=== PATIENT | male | born 1975 | race Caucasian/White ===

== ENCOUNTER 2016-12-12 01:05 | Emergency (ER) | payer MEDICARE, MEDICAID ==
[~2016-12-12] VITALS: Ht 160 cm; Wt 58.5 kg
[~2016-12-12 01:05] MED LIST: AMOX1TAB67 PO; CINA60TA PO; CLON0.2T5 PO; FOLI-49 PO; LABE200T25 PO; LORA1TAB PO; LOSA100T7 PO; NEPH PO; NIFE90TA PO; PANT40TA3 PO; PARO20TA58 PO; SEVE800T10 PO; ZOLP5TAB6 PO
[2016-12-12 01:19] VITALS: Ht 160 cm; Wt 58.5 kg
--- NOTE | 2016-12-12 02:52 | ERA ---
ER Documentation Chief Complaint Date/Time DATE: 12/12/16 TIME: 02:52 Chief Complaint epigastric burning pain radiating to back HPI The patient is a 40-year-old male, presenting with epigastric abdominal pain for the last couple of days, worse today, 03/18, no relieving or aggravating factors. He has similar symptoms previously, denies fever, chills, neck pain, chest pain, dyspnea, vomiting, dysuria, diarrhea. Past medical history: Chronic kidney disease, hypertension Past surgical history: History of failed kidney transplant, AV fistula, right chest hemodialysis catheter ROS All systems reviewed and are negative except as per history of present illness. Medications Home Meds Active Scripts Hydrocodone/Acetaminophen ([place] 10-325 Tablet) 1 Each Tablet, 1 TAB PO Q6H Y for PAIN, #7 TAB Prov:ELISE FAM MD 12/12/16 Pantoprazole* (Protonix*) 40 Mg Tablet.dr, 40 MG PO DAILY, #14 TAB Prov:ELISE FAM MD 12/12/16 Reported Medications Lorazepam* (Lorazepam*) 1 Mg Tablet, 1 MG PO BID Y for ANXIETY, TAB 08/08/15 Zolpidem Tartrate* (Zolpidem Tartrate*) 5 Mg Tablet, 5 MG PO HS Y, TAB 08/08/15 Cinacalcet* (Sensipar*) 60 Mg Tablet, 60 MG PO DAILY, TAB 08/08/15 Clonidine Hcl* (Clonidine Hcl*) 0.2 Mg Tablet, 0.2 MG PO Q6, TAB 08/08/15 Paroxetine Hcl* (Paxil*) 20 Mg Tablet, 20 MG PO DAILY, TAB 08/08/15 Nifedipine* (Procardia XL*) 90 Mg/Bottle Tab.osm.24, 90 MG PO Q12, TAB.SA 08/08/15 Multivit/Ca Carb/B Cmplx/Fa* (Sussy-Gen*) 1 Tab Tab, 1 TAB PO DAILY, TAB 05/01/15 Losartan Potassium* (Losartan Potassium*) 100 Mg Tablet, 100 MG PO DAILY, TAB 05/01/15 Labetalol Hcl* (Labetalol Hcl*) 200 Mg Tablet, 200 MG PO Q8, TAB 05/01/15 Pantoprazole* (Protonix*) 40 Mg Tablet.dr, 40 MG PO DAILY, TAB 05/01/15 Folic Acid* (Folic Acid*) 1 Mg Tablet, 1 MG PO DAILY, TAB 05/01/15 Amoxicillin-Clavulanate K* (Augmentin*) 500 Mg Tab, 500 MG PO DAILY, TAB 05/01/15 Sevelamer Hcl* (Renagel*) 800 Mg Tablet, 800 MG PO WITH MEALS, TAB 06/23/14 Allergies Allergies: Coded Allergies: metronidazole (Unverified Adverse Reaction, Severe, DELIRIUM, 05/02/15) PMhx/Soc History of Surgery: Yes (AV FISTULA [id number], KIDNEY TRANSPLANT 1990) Anesthesia Reaction: No Hx Neurological Disorder: No Hx Respiratory Disorders: No Hx Cardiac Disorders: Yes (HTN) Hx Psychiatric Problems: No Hx Miscellaneous Medical Probl: Yes Hx Alcohol Use: No Hx Substance Use: No Hx Tobacco Use: No Physical Exam Vitals Physical Exam Const: No acute distress. Head: Atraumatic. Eyes: Normal Conjunctiva. ENT: Normal External Ears, Nose and Mouth. Neck: Full range of motion. No meningismus. Resp: Clear to auscultation bilaterally. Cardio: Regular rate and rhythm, no murmurs. Abd: Soft, non distended, normal bowel sounds, moderate epigastric abdominal tenderness, no right lower, right upper quadrant, CVA, rigidity, rebound tenderness Skin: No petechiae or rashes. Back: No midline or flank tenderness. Ext: No cyanosis, or edema. Neur: Awake and alert. No focal deficit Psych: Normal Mood and Affect. Result Diagram: 12/12/16 0325 12/12/16 0325 Results 24 hrs Laboratory Tests Test 12/12/16 03:25 Alanine Aminotransferase (ALT/SGPT) 419IU/L Albumin 4.7g/dl Albumin/Globulin Ratio 1.23 Alkaline Phosphatase 346IU/L Anion Gap 25 Aspartate Amino Transf (AST/SGOT) 394IU/L Basophils # 0.010^3/ul Basophils % 0.5% Blood Morphology Comment Blood Urea Nitrogen 28mg/dl Calcium Level 9.7mg/dl Carbon Dioxide Level 27mmol/L Chloride Level 93mmol/L Creatinine 7.94mg/dl Direct Bilirubin 0.80mg/dl Eosinophils # 0.110^3/ul Eosinophils % 1.7% Globulin 3.80g/dl Glucose Level 90mg/dl Hematocrit 36.1% Hemoglobin 11.9g/dl Indirect Bilirubin 0.2mg/dl Lipase 133U/L Lymphocytes # 1.010^3/ul Lymphocytes % 18.0% Mean Corpuscular Hemoglobin 29.5pg Mean Corpuscular Hemoglobin Concent 32.9g/dl Mean Corpuscular Volume 89.6fl Mean Platelet Volume 9.6fl Monocytes # 0.510^3/ul Monocytes % 8.1% Neutrophils # 4.010^3/ul Neutrophils % 71.7% Nucleated Red Blood Cells # 0.010^3/ul Nucleated Red Blood Cells % 0.0/100WBC Platelet Count 98877^3/UL Potassium Level 4.3mmol/L Red Blood Count 4.0310^6/ul Red Cell Distribution Width 16.0% Sodium Level 141mmol/L Total Bilirubin 1.0mg/dl Total Protein 8.5g/dl White Blood Count 5.610^3/ul Current Medications Medications (Trade) Dose Ordered Sig/Kayden Route PRN Reason Start Time Stop Time Status Last Admin Dose Admin Morphine Sulfate (morphine) 4 mg ONCE STAT IV 12/12/16 02:57 12/12/16 02:58 DC 12/12/16 03:28 Ondansetron HCl (Zofran Inj) 4 mg ONCE STAT IV 12/12/16 02:57 12/12/16 02:58 DC 12/12/16 03:28 Morphine Sulfate (morphine) 2 mg ONCE ONCE IV 12/12/16 05:30 12/12/16 05:31 DC 12/12/16 05:30 Procedures/[place] [id number] Radiology Main Line: [phone] DIAGNOSTIC IMAGING REPORT Patient: SARAH NAZARIO : 1975 Age: 40 Sex: M MR #: [id number] DOS: 12/12/16 0257 Ordering MD: ELISE FAM MD Location: E/R Room/Bed: PROCEDURE: CT Abdomen and pelvis without contrast. CLINICAL INDICATION: Abdominal pain. TECHNIQUE: CT scan of the abdomen and pelvis was performed on a multi- detector high-resolution CT scanner. Contiguous axial images were obtained from the lung bases to the ischial tuberosities without intravenous contrast. Coronal and sagittal reformatted images were also obtained. Images were reviewed on the PACS workstation. One or more of the following dose reduction techniques were used: - Automated exposure control. - Adjustment of the mA and/or kV according to patient size. - Use of iterative reconstruction technique. Exam CTD/vol = 6.89 mGy. Total exam DLP = 394.23 mGy-cm. COMPARISON: None. FINDINGS: Evaluation of the lung bases demonstrates mild bibasilar atelectasis. Abdomen: The liver is normal in size with no focal mass identified. The patient is status post cholecystectomy with mild to moderate dilatation of the biliary tree. The common bile duct is dilated to 2.1 cm. The spleen, pancreas and bilateral adrenal glands are within normal limits. Bilateral kidneys are atrophic with no contour deforming mass identified. There is a left lower abdominal renal transplant which is normal in size and contains multiple cortical cysts and calcifications. There is no radiopaque ureteral calculus identified. There is no hydronephrosis or hydroureter. There is no retroperitoneal adenopathy. The abdominal aorta is of normal caliber. There is no bowel obstruction or free air. A normal appendix is identified. There is colonic diverticulosis without evidence of diverticulitis. There is no ascites. Pelvis: The bladder is unremarkable. The prostate and seminal vesicles are within normal limits. There is no significant pelvic adenopathy or free fluid. Evaluation of the osseous structures demonstrates no suspicious lytic or blastic lesion. IMPRESSION: Left lower abdominal renal transplant with multiple cortical cysts and calcifications. There is no obstructive uropathy. Bilateral atrophic [place] kidneys. Status post cholecystectomy with dilatation of the biliary tree. Colonic diverticulosis without evidence of diverticulitis. .Crow August MD, MD Date Time Electronically viewed and signed by .Crow August MD, on 12/12/2016 04:02 .T/ CC: ELISE FAM MD MEDICAL MAKING DECISION: The patient is a 40-year-old male, presenting with epigastric abdominal pain of unclear etiology. He was treated with morphine 4 mg IV, 2 mg IV for pain and Zofran formula IV for nausea with good response. The differential diagnoses considered include but are not limited to cholelithiasis, cholecystitis, cystitis, pancreatitis, hepatitis, gastritis, peptic ulcer disease, gastric ulcer, appendicitis, diverticulitis, cholangitis, choledocholithiasis, partial small bowel obstruction. Departure Diagnosis: Primary Impression: Epigastric pain Condition: Good Comments He was discharged with Protonix I discussed the findings with the patient. I advised the patient to follow-up with the primary physician in about 1-2 days, sooner if needed and return if any concern. ELISE FAM MD Dec 12, 2016 02:52
[2016-12-12] MEDS ORDERED: morphine 4 MG/ML VIAL IV STA (02:57)
[2016-12-12] MEDS ORDERED: ONDANSETRON 4 MG INJ IV STA (02:57)
--- NOTE | 2016-12-12 04:03 | RADRPT ---
PROCEDURE: CT Abdomen and pelvis without contrast. CLINICAL INDICATION: Abdominal pain. TECHNIQUE: CT scan of the abdomen and pelvis was performed on a multi-detector high-resolution CT scanner. Contiguous axial images were obtained from the lung bases to the ischial tuberosities wit hout intravenous contrast. Coronal and sagittal reformatted images were also obtained. Images were reviewed on the PACS workstation. One or more of the following dose reduction techniques were used: - Automated exposure control. - Adjustment of the mA and/or kV according to patient size. - Use of iterative reconstruction technique. Exam CTD/vol = 6.89 mGy. Total exam DLP = 394.23 mGy-cm. COMPARISON: None. FINDINGS: Evaluation of the lung bases demonstrates mild bibasilar atelectasis. Abdomen: The liver is normal in size with no focal mass identified. The patient is status post cho lecystectomy with mild to moderate dilatation of the biliary tree. The common bile duct is dilated to 2.1 cm. The spleen, pancreas and bilateral adrenal glands are within normal limits. Bilateral k idneys are atrophic with no contour deforming mass identified. There is a left lower abdominal liz l transplant which is normal in size and contains multiple cortical cysts and calcifications. There is no radiopaque ureteral calculus identified. There is no hydronephrosis or hydroureter. There i s no retroperitoneal adenopathy. The abdominal aorta is of normal caliber. There is no bowel obstruction or free air. A normal appendix is identified. There is colonic diver ticulosis without evidence of diverticulitis. There is no ascites. Pelvis: The bladder is unremarkable. The prostate and seminal vesicles are within normal limits. There is no significant pelvic adenopathy or free fluid. Evaluation of the osseous structures demonstrates no suspicious lytic or blastic lesion. IMPRESSION: Left lower abdominal renal transplant with multiple cortical cysts and calcifications. There is no o bstructive uropathy. Bilateral atrophic [place] kidneys. Status post cholecystectomy with dilatation of the biliary tree. Colonic diverticulosis without evidence of diverticulitis. .Crow August MD, MD Date Time Electronically viewed and signed by .Crow August MD, MD on 12/12/2016 04:02 .T/
[2016-12-12 04:07] LABS: ALBUMIN 4.7 g/dl (3.3-4.9)
[2016-12-12 04:08] LABS: POTASSIUM 4.3 mmol/L (3.5-5.1)
[2016-12-12 04:10] LABS: ALBUMIN/GLOBULIN RATIO 1.23; BILIRUBIN,DIRECT 0.8 mg/dl (0.00-0.20); BILIRUBIN,INDIRECT 0.2 mg/dl (0-1.1); CREATININE 7.94 mg/dl (0.61-1.24); TOTAL PROTEIN 8.5 g/dl (6.1-8.1)
[2016-12-12 04:11] LABS: CALCIUM 9.7 mg/dl (8.4-10.2)
[2016-12-12 04:30] LABS: BASOPHILS % 0.5 % (0.0-2.0); EOSINOPHILS # 0.1 10^3/ul (0.0-0.5); EOSINOPHILS % 1.7 % (0.0-7.0); HEMATOCRIT 36.1 % (42.0-52.0); HEMOGLOBIN 11.9 g/dl (14.0-18.0); MEAN CORPUSCULAR HEMOGLOBIN 29.5 pg (29.0-33.0); MEAN CORPUSCULAR HGB CONC 32.9 g/dl (32.0-37.0); MEAN CORPUSCULAR VOLUME 89.6 fl (82.0-101.0); MEAN PLATELET VOLUME 9.6 fl (7.4-10.4); MONOCYTE # 0.5 10^3/ul (0.3-0.9); MONOCYTES % 8.1 % (0.0-11.0); NEUTROPHILS % 71.7 % (39.0-77.0); PLATELET COUNT 224 10^3/UL (140-440); RED BLOOD COUNT 4.03 10^6/ul (4.70-6.10); UNCORRECTED WBC 5.6 10^3/ul (4.8-10.8); WHITE BLOOD COUNT 5.6 10^3/ul (4.8-10.8)
[2016-12-12 04:35] LABS: CONDITION 1; LH ANALYZER COMMENTS 1
[2016-12-12] MEDS ORDERED: PANT40TA3 PO (05:22)
[2016-12-12] MEDS ORDERED: HYDR-902 PO (05:22)
[2016-12-12] MEDS ORDERED: morphine 2 MG INJ IV ONE (05:30)
[2016-12-12 06:24] VITALS: BP 146/104; PULSE 84; RESP 18
== END 2016-12-12 06:33 | disposition home or self-care (01) ==
LOC: E/R 01:05
DX: R10.13 Epigastric pain (principal); I12.0 Hypertensive chronic kidney disease with stage 5 chronic kidney disease or end stage renal disease; N18.6 End stage renal disease; R11.0 Nausea; Z94.0 Kidney transplant status; Z99.2 Dependence on renal dialysis
CPT/HCPCS: 36415; 74176; 80053; 83690; 85025; 96374; 96375; 96376; 99285; J2270; J2405

== ENCOUNTER 2017-01-19 16:54 | Inpatient (IN) | payer MEDICARE, MEDICAID ==
[~2017-01-19] VITALS: Ht 160 cm; Wt 61.5 kg
[~2017-01-19 16:54] MED LIST changes: +HYDR-902 PO
[2017-01-19] MEDS ORDERED: SODIUM CHLORIDE 0.9% 1L BAG IV* STA (17:32)
[2017-01-19] MEDS ORDERED: ACETAMINOPHEN 325 MG TAB PO STA (17:32)
[2017-01-19] MEDS ORDERED: CEFEPIME 2GM/50 ML (PMX) 50 ML IVPB STA (17:32)
--- NOTE | 2017-01-19 17:41 | ERA ---
ER Documentation Chief Complaint Date/Time DATE: 01/19/17 TIME: 17:39 Chief Complaint COUGH CONGESTION WITH SOB AND FEVER FOR THE PAST FEW DAYS.GEN WEAKNESS HPI 41-year-old male history of end-stage renal disease on dialysis who presents with fever and hyperkalemia. He states his last dialysis was on Thursday. He describes approximately 1 week of cough and congestion with fever, chills, myalgia. Mild associated shortness of breath. Patient was told recently that his potassium was high. He denies any headache, rash, abdominal pain. No nausea vomiting or diarrhea. ROS All systems reviewed and are negative except as per history of present illness. Medications Home Meds Reported Medications Cinacalcet* (Sensipar*) 30 Mg Tab, 30 MG PO DAILY, TAB 01/19/17 Esomeprazole Mag Trihydrate (Nexium) 40 Mg Capsule.dr, 40 MG PO DAILY, #30 CAP 01/19/17 Lorazepam* (Lorazepam*) 1 Mg Tablet, 1 MG PO BID Y for ANXIETY, TAB 08/08/15 Zolpidem Tartrate* (Zolpidem Tartrate*) 5 Mg Tablet, 5 MG PO HS Y, TAB 08/08/15 Nifedipine* (Procardia XL*) 90 Mg/Bottle Tab.osm.24, 90 MG PO Q12, TAB.SA 08/08/15 Losartan Potassium* (Losartan Potassium*) 100 Mg Tablet, 100 MG PO DAILY, TAB 05/01/15 Labetalol Hcl* (Labetalol Hcl*) 200 Mg Tablet, 200 MG PO Q8, TAB 05/01/15 Folic Acid* (Folic Acid*) 1 Mg Tablet, 1 MG PO DAILY, TAB 05/01/15 Sevelamer Hcl* (Renagel*) 800 Mg Tablet, 800 MG PO WITH MEALS, TAB 06/23/14 Discontinued Reported Medications Cinacalcet* (Sensipar*) 60 Mg Tablet, 60 MG PO DAILY, TAB 08/08/15 Clonidine Hcl* (Clonidine Hcl*) 0.2 Mg Tablet, 0.2 MG PO Q6, TAB 08/08/15 Paroxetine Hcl* (Paxil*) 20 Mg Tablet, 20 MG PO DAILY, TAB 08/08/15 Multivit/Ca Carb/B Cmplx/Fa* (Sussy-Gen*) 1 Tab Tab, 1 TAB PO DAILY, TAB 05/01/15 Pantoprazole* (Protonix*) 40 Mg Tablet.dr, 40 MG PO DAILY, TAB 05/01/15 Amoxicillin-Clavulanate K* (Augmentin*) 500 Mg Tab, 500 MG PO DAILY, TAB 05/01/15 Discontinued Scripts Hydrocodone/Acetaminophen ([place] 10-325 Tablet) 1 Each Tablet, 1 TAB PO Q6H Y for PAIN, #7 TAB Prov:ELISE FAM MD 12/12/16 Pantoprazole* (Protonix*) 40 Mg Tablet., 40 MG PO DAILY, #14 TAB Prov:ELISE FAM MD 12/12/16 Allergies Allergies: Coded Allergies: metronidazole (Unverified Adverse Reaction, Severe, DELIRIUM, 01/19/17) PMhx/Soc History of Surgery: Yes (AV FISTULA [id number], KIDNEY TRANSPLANT 1990, permacath on right chest) Anesthesia Reaction: No Hx Neurological Disorder: No Hx Respiratory Disorders: No Hx Cardiac Disorders: Yes (HTN) Hx Psychiatric Problems: No Hx Miscellaneous Medical Probl: Yes (gallstones, ESRD (dialysis pt)) Hx Alcohol Use: No Hx Substance Use: No Hx Tobacco Use: No FmHx Family History: No diabetes Physical Exam Vitals Vital Signs Date Time Temp Pulse Resp B/P Pulse Ox O2 Delivery O2 Flow Rate FiO2 01/19/17 18:36 103.1 110 25 139/83 98 01/19/17 18:09 102.7 111 21 152/93 99 01/19/17 17:15 103.3 113 21 131/74 98 Physical Exam General: Well developed, well nourished, no acute distress Head: Normocephalic, atraumatic. Eyes: Pupils equally reactive, EOM intact ENT: Moist mucous membranes Neck: Supple, no lymphadenopathy Respiratory: Scant rhonchi bilaterally but good aeration, no distress Cardiovascular: Tachycardia, no murmurs, rubs, or gallops Abdominal: Soft, non-tender, non-distended, no peritoneal signs : Deferred MSK: No edema, no unilateral swelling, 5/5 strength Neurologic: Alert and oriented, moving all extremities, normal speech, no focal weakness, no cerebellar signs Skin: No rash, right tunneled Vas-Cath is clean dry and intact Psych: Normal mood Result Diagram: 01/19/17 1745 01/19/17 1745 Results 24 hrs Laboratory Tests Test 01/19/17 17:45 Activated Partial Thromboplast Time 39.6Sec Alanine Aminotransferase (ALT/SGPT) 30IU/L Albumin 4.2g/dl Albumin/Globulin Ratio 1.35 Alkaline Phosphatase 130IU/L Anion Gap 27 Aspartate Amino Transf (AST/SGOT) 26IU/L Blood Urea Nitrogen 43mg/dl Calcium Level 8.4mg/dl Carbon Dioxide Level 23mmol/L Chloride Level 94mmol/L Creatinine 13.43mg/dl Direct Bilirubin 0.00mg/dl Globulin 3.10g/dl Glucose Level 167mg/dl Hematocrit 31.3% Hemoglobin 10.1g/dl Hypochromasia 1+ INR International Normalized Ratio 1.08 Indirect Bilirubin 0.0mg/dl Lactic Acid Level 2.5mmol/L Lymphocytes # 0.210^3/ul Lymphocytes % 2.0% Mean Corpuscular Hemoglobin 29.2pg Mean Corpuscular Hemoglobin Concent 32.3g/dl Mean Corpuscular Volume 90.5fl Mean Platelet Volume 12.3fl Monocytes # 0.210^3/ul Monocytes % 2.0% Neutrophils # 8.610^3/ul Neutrophils % 96.0% Platelet Count 64879^3/UL Platelet Estimate PLT APPEAR ADEQUATE Potassium Level 4.9mmol/L Prothrombin Time 14.0Sec Prothrombin Time Ratio 1.1 Red Blood Count 3.4610^6/ul Red Cell Distribution Width 13.7% Sodium Level 139mmol/L Total Bilirubin 0.0mg/dl Total Protein 7.3g/dl Troponin I < 0.012ng/ml White Blood Count 9.010^3/ul Current Medications Medications (Trade) Dose Ordered Sig/Kayden Route PRN Reason Start Time Stop Time Status Last Admin Dose Admin Sodium Chloride (NS) 1,800 ml BOLUS OVER 2 HOURS STAT IV* 01/19/17 17:32 01/19/17 17:34 DC 01/19/17 17:48 Acetaminophen 650 mg 650 mg ONCE STAT PO 01/19/17 17:32 01/19/17 17:34 DC 01/19/17 17:49 Cefepime HCl 50 ml @ 100 mls/hr ONCE STAT IVPB 01/19/17 17:32 01/19/17 18:01 DC 01/19/17 17:48 Vancomycin HCl (Vancocin) 250 ml @ 125 mls/hr ONCE ONCE IVPB 01/19/17 18:00 01/19/17 19:59 01/19/17 18:40 Ibuprofen (Motrin) 600 mg ONCE ONCE PO 01/19/17 19:30 01/19/17 19:31 Ondansetron HCl (Zofran Inj) 4 mg BRIDGE ORDER PRN IV NAUSEA AND/OR VOMITING 01/19/17 19:30 01/20/17 19:29 Acetaminophen (Tylenol Tab) 650 mg ER BRIDGE PRN PO MILD PAIN/FEVER 01/19/17 19:30 01/20/17 19:29 Procedures/MDM EKG, MONITORS, & DIAGNOSTIC IMAGING: EKG: I reviewed and interpreted a 12-lead EKG. Rhythm: Normal sinus rhythm Ectopy: None Intervals: No abnormalities ST segments: No elevations or depressions T waves: No contiguous inversions Chest x-ray: I reviewed and interpreted a 1 view of the chest Mediastinum: No enlargement Cardiac silhouette: No cardiomegaly Airspace: Clear lung marion bilaterally without evidence of pneumothorax Bones: No evidence of fracture LAB INTERPRETATION: Normal white count, borderline lactic acid of 2.5 likely secondary to poor renal clearance MEDICAL DECISION MAKING: The patient presents with signs and symptoms concerning for sepsis. Consider viral syndrome versus pneumonia given respiratory symptoms. Also consider possible vascular cath related infection. The patient is otherwise well- appearing but does have a fever of 103. Sepsis screening will be initiated. Initiation of broad-spectrum antibiotics would be appropriate. I have initially written for 30/kg bolus of saline however if the patient does not meet severe sepsis criteria for fluid bolus would not be necessary. The patient will be given antipyretics. Vancomycin and cefepime. Influenza swab has been sent. ER COURSE: The patient was given initial Tylenol. Still with fever. Motrin provided. The patient was given a 30/kg bolus of saline. Lactic acid slightly elevated. However, no source. The patient does not meet heart criteria for sepsis given that the patient only has Sirs but no source. Empiric antibiotics provided regardless. The patient will benefit from inpatient hospitalization, further monitoring, culture monitoring. The patient remains hemodynamically stable, otherwise well-appearing. Greater than 1 week of symptoms therefore Tamiflu not necessarily indicated at this time. Influenza swab negative. I kept the patient and/or family informed of laboratory and diagnostic imaging results throughout the emergency room course. DISPOSITION PLAN: Medical surgical admission CONSULTATION: Accepting care team and consultations: I discussed the current laboratory data, diagnostic imaging and emergency care provided. Admitting team: Dr. Jam Beatty Admitting team indication: Insurance directed Of note during the patient's ER course he does not meet sepsis criteria as the patient does not have a source of infection or presumed source. The patient has Sirs criteria but not sepsis. Departure Diagnosis: Primary Impression: SIRS (systemic inflammatory response syndrome) Additional Impressions: End stage renal disease on dialysis Lactic acidosis Condition: Stable KURT JACKSON MD Jan 19, 2017 17:40
[2017-01-19] MEDS ORDERED: VANCOMYCIN 1 GM (PMX) 250 ML IVPB ONE (18:00)
[2017-01-19 18:03] LABS: ADD SCAN DIFF NO
[2017-01-19 18:05] LABS: ABNORMAL IP MESSAGE 1; HEMATOCRIT 31.3 % (42.0-52.0); HEMOGLOBIN 10.1 g/dl (14.0-18.0); MEAN CORPUSCULAR HEMOGLOBIN 29.2 pg (29.0-33.0); MEAN CORPUSCULAR HGB CONC 32.3 g/dl (32.0-37.0); MEAN CORPUSCULAR VOLUME 90.5 fl (82.0-101.0); MEAN PLATELET VOLUME 12.3 fl (7.4-10.4); PLATELET COUNT 165 10^3/UL (140-415); RED BLOOD COUNT 3.46 10^6/ul (4.70-6.10); RED CELL DISTRIBUTION WIDTH 13.7 % (11.5-14.5)
[2017-01-19 18:14] LABS: INR 1.08; PT RATIO 1.1
[2017-01-19 18:15] LABS: PARTIAL THROMBOPLASTIN TIME 39.6 Sec (25.0-35.0)
[2017-01-19 18:19] LABS: ALBUMIN 4.2 g/dl (3.3-4.9); CHLORIDE 94 mmol/L (97-110); POTASSIUM 4.9 mmol/L (3.5-5.1); SODIUM 139 mmol/L (135-144)
[2017-01-19 18:21] LABS: CREATININE 13.43 mg/dl (0.61-1.24)
[2017-01-19 18:22] LABS: ALANINE AMINOTRANSFERASE 30 IU/L (13-69); ALBUMIN/GLOBULIN RATIO 1.35; ALKALINE PHOSPHATASE 130 IU/L (42-121); ANION GAP 27 (8-16); ASPARTATE AMINO TRANSFERASE 26 IU/L (15-46); BLOOD UREA NITROGEN 43 mg/dl (7-20); CARBON DIOXIDE 23 mmol/L (21-31); GLUCOSE 167 mg/dl (70-220); TOTAL PROTEIN 7.3 g/dl (6.1-8.1)
[2017-01-19 18:23] LABS: CALCIUM 8.4 mg/dl (8.4-10.2)
[2017-01-19 18:39] LABS: TROPONIN-I < 0.012 ng/ml (0.00-0.12)
[2017-01-19] MEDS ORDERED: CNC30T PO (18:48)
[2017-01-19] MEDS ORDERED: ESOM40CA PO (18:48)
[2017-01-19 19:00] LABS: HYPOCHROMASIA 1+; LYMPHOCYTES # 0.2 10^3/ul (0.8-2.9); MONOCYTE # 0.2 10^3/ul (0.3-0.9); NEUTROPHIL # 8.6 10^3/ul (1.6-7.5); PLATELET ESTIMATE PLT APPEAR ADEQUATE
--- NOTE | 2017-01-19 19:28 | RADRPT ---
PROCEDURE: XR Chest. CLINICAL INDICATION: Possible Sepsis TECHNIQUE: Single frontal view of the chest was obtained. COMPARISON: 05/01/2015 FINDINGS: The cardiomediastinal silhouette is normal size. Pulmonary vasculature is within normal limits. Th e lungs are clear. There is a right internal jugular catheter extending to the cavoatrial junction r egion. No signs of pleural fluid or pneumothorax are seen. The osseous structures and soft tissues are unre markable. IMPRESSION: 1. Right internal jugular catheter in place. 2. No evidence for acute cardiopulmonary disease. RPTAT: DD .Huey Guzman MD, Date Time Electronically viewed and signed by .Huey Guzman MD, on 01/19/2017 19:28 .T/
[2017-01-19] MEDS ORDERED: ACETAMINOPHEN 325 MG TAB PO PRN (19:30)
[2017-01-19] MEDS ORDERED: ONDANSETRON 4 MG INJ IV PRN (19:30)
[2017-01-19] MEDS ORDERED: IBUPROFEN 600 MG TAB PO ONE (19:30)
[2017-01-19 21:16] VITALS: TEMP 98.7
[2017-01-19 22:00] VITALS: Ht 160 cm; Wt 61.5 kg
[2017-01-19 22:01] VITALS: BP 94/54; RESP 18
[2017-01-19] MEDS ORDERED: VANCOMYCIN IV PER PHARMACY XX SCH (23:00)
[2017-01-19] MEDS ORDERED: LORAZEPAM 1 MG TAB PO PRN (23:00)
[2017-01-20] VITALS (10 sets, daily range): BP systolic 110–189; BP diastolic 59–86; PULSE 72–100; RESP 18–20
[2017-01-20] MEDS: CEFTRIAXONE 1 GM/50 ML (PMX) 50 ML IVPB SCH ×2 (00:17→22:08)
[2017-01-20] MEDS: PANTOPRAZOLE (EC) 40 MG TAB PO SCH (05:41)
[2017-01-20] MEDS: LABETALOL 200 MG TAB PO SCH ×4 (05:41→23:46)
[2017-01-20] MEDS: ACETAMINOPHEN 325 MG TAB PO PRN ×2 (06:50→14:19)
[2017-01-20] MEDS ORDERED: NON-FORMULARY/PATIENT OWN MED (Esomeprazole Mag Trihydrate (Nexium) 40 MG) PO SCH (09:00)
[2017-01-20] MEDS: CINACALCET 30 MG TAB PO SCH (09:05)
[2017-01-20] MEDS: LOSARTAN 50 MG TAB PO SCH (09:05)
[2017-01-20] MEDS: NIFEdipine (XL) 90 MG TAB PO SCH ×2 (09:05→23:46)
[2017-01-20] MEDS: SEVELAMER 800 MG TAB PO SCH ×3 (09:05→18:03)
[2017-01-20] MEDS: FOLIC ACID 1 MG TAB PO SCH (09:05)
--- NOTE | 2017-01-20 16:09 | CONS ---
DATE OF ADMISSION: 01/19/2017 DATE OF CONSULTATION: 01/20/2017 TYPE OF CONSULTATION: Infectious Disease. REASON FOR CONSULTATION: Antibiotic management. HISTORY OF PRESENT ILLNESS: Rico Cedeno is a 41-year-old male who comes in with cough, co ngestion, shortness of breath and fever. His problems include end-stage renal disease on hemodialys is. The patient presented with fever and hypokalemia. His last dialysis was on Thursday, which was 01/17/2017. He has 1 week of cough, congestion, fever, chills, myalgia. His past problems include : 1. End-stage renal disease, on hemodialysis. The patient was given Augmentin, I believe at home. He is ALLERGIC TO metronidazole. 2. Past surgery history: He had an AV fistula placed in 2000. 3. He had a kidney transplant in 1990. 4. He has a PermCath in the right chest. 5. He also has a history of hypertension. 6. He has a history of gallstones. On admission, his white count was 9.0, H and H of 10.1 and 31.3, platelet count 165,000. BUN and cr eatinine 43/13.43, glucose of 167. Two sets of blood cultures grew out gram-negative rods. Influe nza was negative. He is on vancomycin and ceftriaxone. He also received cefepime. Chest x-ray hari wed a right internal jugular catheter, no evidence for acute cardiopulmonary disease. I do not omega laura he has significant urinary output. PAST MEDICAL HISTORY: Operations as outlined. FAMILY HISTORY: Noncontributory. SOCIAL HISTORY: He does not smoke, drink or abuse drugs. ALLERGIES: NONE TO PENICILLIN, SULFA OR FOODS. MEDICATIONS: Per chart. REVIEW OF SYSTEMS: As per HPI. PHYSICAL EXAMINATION: GENERAL: The patient is a well-developed, well-nourished male who is awake, responsive, in no acute distress. VITAL SIGNS: Stable. His temperature max was 103.3. Currently, he is 101.1. SKIN: Without generalized rash. HEENT: Within normal limits. NECK: Supple. CHEST: He has a PermCath in the right chest. Decreased breath sounds at the bases with scattered rhonchi. HEART: Tachycardic without murmur or gallop. ABDOMEN: Soft, nontender, nondistended, without organosplenomegaly or masses. EXTREMITIES: Without cyanosis, clubbing, or edema. RECTAL/GENITAL: Deferred. NEUROLOGIC: No focal neurological abnormalities. The patient has a tunneled Vas-Cath as noted whic h is clean, dry and intact. IMPRESSION AND PLAN: The patient has Gram-negative willard sepsis, etiology of which is unclear. Certa inly we have to worry about his PermCath. However, he usually we see Staphylococcus aureus or methi cillin-resistant Staphylococcus in that situation. He is not putting out urine. We may want to str aight catheterize him. I will start him on gentamicin post-dialysis and get 2 more sets of blood cu ltures. I will dictate my findings to Dr. Gómez. Dictated By: BLAYNE REYES MD, JD/SHAE Conf#: [id number] DID#: [id number]
[2017-01-20] MEDS: GENTAMICIN 80 MG/NS (PMX) 50 ML IVPB SCH (18:05)
--- NOTE | 2017-01-20 19:45 | QN ---
Documentation Comment [id number] DARYL MIRELES MD Jan 20, 2017 19:45
--- NOTE | 2017-01-20 21:21 | HP ---
DATE OF ADMISSION: 01/19/2017 HISTORY OF PRESENT ILLNESS: The patient is a 41-year-old male with history of kidney transplant, failed; history of ESRD, hypertension; history of _; right chest catheter; history of hematuria in the past, resolved, presented with fever , chills, rigors, noted to have sepsis and is being admitted for further management. Blood pressure recorded as 139/83. The patient has a WBC of 9.0, hematocrit 31.3, platelet count 165. The patient sodium 139, potassium 4.9. Chest x-ray done shows right in place, no evidence for acute cardiopulmonary disease. The patient's blood culture: Gram-negative rods noted at this point. PAST MEDICAL HISTORY: Hypertension; ESRD; anemia; history of hematuria in the past; history of kidney transplant, failed. ALLERGIES: FLAGYL. SOCIAL HISTORY: Negative. FAMILY HISTORY: Negative. MEDICATION HISTORY: The patient is on: 1. Sensipar. 2. Nexium. 3. Folic acid. 4. Labetalol. 5. Lorazepam. 6. Losartan. 7. bp meds. 8. Renvela. 9. Ambien. REVIEW OF SYSTEMS: HEENT: Unremarkable. RESPIRATORY: Unremarkable. CARDIOVASCULAR: Unremarkable. ABDOMEN: Complaining of abdominal pain. EXTREMITIES: Unremarkable. CENTRAL NERVOUS SYSTEM: Unremarkable, otherwise _. PHYSICAL EXAMINATION: GENERAL: The patient is awake, alert. VITAL SIGNS: Stable. HEAD: Atraumatic, normocephalic. EYES: Pupils equal, reactive to light. NECK: Supple. No JVD. LUNGS: Clear. CARDIOVASCULAR: S1, S2 normal. ABDOMEN: Soft, nontender. Bowel sounds present. No palpable mass. The patient has a transplant kidney in the lower quadrant noted. EXTREMITIES: There is no cyanosis, clubbing, edema. CENTRAL NERVOUS SYSTEM: The patient is awake, alert. No focal deficit. LABORATORY DATA: As mentioned above. IMPRESSION: 1. The patient has gram-negative willard bacteremia. 2. Possible catheter-related sepsis. 3. Leukocytosis. 4. Anemia. 5. End-stage renal disease. 6. Hypertension. 7. History of kidney transplant. PLAN: Continue patient on gentamicin, Sensipar, folic acid. The patient is on Rocephin, _ vancomycin. The patient's electrolytes will be monitored very closely. Dictated By: DARYL MIRELES MD BS/NTS Conf#: [id number] [facility]#: [id number] MTDD
[2017-01-20] MEDS: ZOLPIDEM 5 MG TAB PO PRN (23:45)
[2017-01-21 05:01] LABS: ADD SCAN DIFF NO
[2017-01-21 05:19] LABS: HEMATOCRIT 25.9 % (42.0-52.0); HEMOGLOBIN 8.4 g/dl (14.0-18.0); MEAN CORPUSCULAR HEMOGLOBIN 29.2 pg (29.0-33.0); MEAN CORPUSCULAR HGB CONC 32.4 g/dl (32.0-37.0); MEAN CORPUSCULAR VOLUME 89.9 fl (82.0-101.0); MEAN PLATELET VOLUME 12.7 fl (7.4-10.4); PLATELET COUNT 102 10^3/UL (140-415); RED BLOOD COUNT 2.88 10^6/ul (4.70-6.10); RED CELL DISTRIBUTION WIDTH 13.7 % (11.5-14.5); WHITE BLOOD COUNT 4.8 10^3/ul (4.8-10.8)
[2017-01-21 05:38] LABS: ALBUMIN 3.6 g/dl (3.3-4.9)
[2017-01-21 05:41] LABS: ALBUMIN/GLOBULIN RATIO 1.16; CREATININE 8.97 mg/dl (0.61-1.24); TOTAL PROTEIN 6.7 g/dl (6.1-8.1)
[2017-01-21 05:42] LABS: CALCIUM 7.5 mg/dl (8.4-10.2)
[2017-01-21] MEDS: LABETALOL 200 MG TAB PO SCH ×3 (06:00→22:08)
[2017-01-21] MEDS ORDERED: VANCOMYCIN 1 GM in NS 250 ML IVPB ONE (06:00)
[2017-01-21] MEDS: PANTOPRAZOLE (EC) 40 MG TAB PO SCH (06:22)
[2017-01-21 07:05] VITALS: BP 102/56; RESP 16
[2017-01-21] MEDS: LOSARTAN 50 MG TAB PO SCH (08:07)
[2017-01-21] MEDS: FOLIC ACID 1 MG TAB PO SCH (08:07)
[2017-01-21] MEDS: SEVELAMER 800 MG TAB PO SCH ×3 (08:07→17:19)
[2017-01-21] MEDS: NIFEdipine (XL) 90 MG TAB PO SCH ×2 (08:08→21:19)
[2017-01-21] MEDS ORDERED: INFLUENZA VIRUS VACCINE 0.5 ML (DISPENSING) IM* ONE (09:00)
[2017-01-21 09:41] LABS: LYMPHOCYTES # 1.3 10^3/ul (0.8-2.9); MONOCYTE # 1.3 10^3/ul (0.3-0.9); NEUTROPHIL # 2.2 10^3/ul (1.6-7.5)
[2017-01-21] MEDS: CINACALCET 30 MG TAB PO SCH (11:36)
--- NOTE | 2017-01-21 14:14 | CONS ---
Date/Time of Note Date/Time of Note DATE: 01/21/17 TIME: 14:11 Assessment/Plan Assessment/Plan Chief Complaint/Hosp Course GNR bacteremia==> poss line sepsis ESRD Hx kidney tx HTN Abx: Kayley Webster Rocephin Plan: Stable, pending final cx, dc Vanco, pending HD cath dc DW staff Problems: Consultation Date/Type/Reason Admit Date/Time Jan 19, 2017 at 19:07 Initial Consult Date Type of Consultation: ID Exam/Review of Systems Vital Signs Vitals Vital Signs Date Time Temp Pulse Resp B/P Pulse Ox O2 Delivery O2 Flow Rate FiO2 01/21/17 07:05 98.2 88 16 102/56 97 01/19/17 21:16 Room Air Intake and Output 01/20/17 01/20/17 01/21/17 15:00 23:00 07:00 Intake Total 500 ml 520 ml 480 ml Output Total 2000 ml Balance -1500 ml 520 ml 480 ml Results Result Diagram: 01/21/17 0445 01/21/17 0445 Results 24 hrs Laboratory Tests Test 01/21/17 04:45 Alanine Aminotransferase (ALT/SGPT) 25 Albumin 3.6 Albumin/Globulin Ratio 1.16 Alkaline Phosphatase 124 H Anion Gap 20 #H Aspartate Amino Transf (AST/SGOT) 21 Basophils # Basophils % Blood Urea Nitrogen 27 #H Calcium Level 7.5 L Carbon Dioxide Level 28 Chloride Level 97 Creatinine 8.97 #H Direct Bilirubin 0.00 Eosinophils # 0.0 Eosinophils % 1.0 Globulin 3.10 Glucose Level 101 # Hematocrit 25.9 L Hemoglobin 8.4 L Indirect Bilirubin 0.0 Lymphocytes # 1.3 Lymphocytes % 27.0 Mean Corpuscular Hemoglobin 29.2 Mean Corpuscular Hemoglobin Concent 32.4 Mean Corpuscular Volume 89.9 Mean Platelet Volume 12.7 H Monocytes # 1.3 H Monocytes % 27.0 H Neutrophils # 2.2 Neutrophils % 45.0 Nucleated Red Blood Cells # Nucleated Red Blood Cells % Platelet Count 102 #L Potassium Level 4.0 Random Vancomycin Level 10.4 Red Blood Count 2.88 L Red Cell Distribution Width 13.7 Sodium Level 141 Total Bilirubin 0.0 L Total Protein 6.7 White Blood Count 4.8 # Medications Medications Current Medications Cinacalcet (Sensipar) 30 mg DAILY PO Last administered on 01/21/17t 11:36; Admin Dose 30 MG; Start 01/20/17 at 09:00 Folic Acid (Folic Acid) 1 mg DAILY PO Last administered on 01/21/17 08:07; Admin Dose 1 MG; Start 01/20/17 at 09:00 Labetalol HCl (Normodyne) 200 mg Q8 PO Last administered on 01/20/17 23:46; Admin Dose 200 MG; Start 01/20/17 at 06:00 Lorazepam (Ativan) 1 mg BID PRN PO ANXIETY; Start 01/19/17 at 23:00 Losartan Potassium (Cozaar) 100 mg DAILY PO Last administered on 01/20/17 09: 05; Admin Dose 100 MG; Start 01/20/17 at 09:00 Nifedipine (Procardia Xl) 90 mg Q12 PO Last administered on 01/20/17 23:46; Admin Dose 90 MG; Start 01/20/17 at 09:00 Zolpidem Tartrate 5 mg 5 mg HS PRN PO INSOMNIA Last administered on 01/20/17 23:45; Admin Dose 5 MG; Start 01/19/17 at 23:00 Ceftriaxone Sodium (Rocephin) 50 ml @ 100 mls/hr Q24H IVPB Last administered on 01/20/17 22:08; Admin Dose 100 MLS/HR; Start 01/19/17 at 23:00 Pantoprazole (Protonix Tab) 40 mg DAILY@06 PO Last administered on 01/21/17 06 :22; Admin Dose 40 MG; Start 01/20/17 at 06:00 Acetaminophen (Tylenol Tab) 650 mg Q6H PRN PO PAIN AND OR ELEVATED TEMP Last administered on 01/20/17 14:19; Admin Dose 650 MG; Start 01/20/17 at 06:30 INOCENCIO AFRIAS NP Jan 21, 2017 14:13
--- NOTE | 2017-01-21 14:34 | RADRPT ---
PROCEDURE: Right internal jugular vein tunneled hemodialysis catheter removal. CLINICAL INDICATION: Right internal jugular vein tunneled dialysis catheter may be infected. TECHNIQUE: INTRAPROCEDURE MEDICATIONS: 1% lidocaine subcutaneous. The procedure, risks, benefits, complications and alternatives were explained to the patient. Consen t was obtained. A procedural pause was performed prior to the procedure. The patient's name, date of , and procedure to be performed were verified. The right anterior chest wall was prepped and draped. One percent lidocaine was used as local anesth esia at the site of the dialysis catheter. Fluoroscopic guidance was used. A 1 cm incision was made utilizing a 11 blade scalpel. Utilizing blunt dissection the tunneled catheter was mobilized. The catheter was then removed. Pressure was applied to the region of the internal jugular vein and the c hest wall at the site of the catheter until adequate hemostasis was obtained. A dressing was applie d. The patient tolerated procedure well. 0.1 minutes of fluoroscopy time was used. The catheter tip was cut and sent for culture and sensitivity. COMPARISON: None. FINDINGS: Successful removal of tunneled dialysis catheter. Preoperative image demonstrates the tunneled dialy sis catheter in position. Postoperative image demonstrates successful removal of the dialysis miracle ter. IMPRESSION: 1. Successful removal of right internal jugular vein tunneled dialysis catheter. RPTAT: QQ .Yosef Faith MD, Date Time Electronically viewed and signed by .Yosef Faith MD, on 01/21/2017 14:34 .R/
[2017-01-21 20:51] VITALS: BP 187/102; PULSE 72; RESP 18
[2017-01-21 22:08] VITALS: BP 189/107; PULSE 68; RESP 18
[2017-01-21] MEDS: CEFTRIAXONE 1 GM/50 ML (PMX) 50 ML IVPB SCH (22:40)
[2017-01-21] MEDS: hydrALAzine 20 MG INJ IV PRN (22:43)
[2017-01-21 23:48] VITALS: BP 168/97; PULSE 79; RESP 18
[2017-01-22 00:45] VITALS: BP 148/70; RESP 18
[2017-01-22] MEDS: ZOLPIDEM 5 MG TAB PO PRN (01:37)
[2017-01-22] MEDS: PANTOPRAZOLE (EC) 40 MG TAB PO SCH (05:30)
[2017-01-22] MEDS: LABETALOL 200 MG TAB PO SCH ×3 (05:34→22:35)
--- NOTE | 2017-01-22 06:16 | PN ---
Date/Time of Note Date/Time of Note DATE: 01/22/17 TIME: 06:14 Assessment/Plan VTE Prophylaxis VTE Prophylaxis Intervention: other Lines/Catheters IV C[facility]ter Type [facility]from [facility] hernan catheter Urinary Cath still in place: No Assessment/Plan Chief Complaint/Hosp Course IMPRESSION: 1. The patient has gram-negative willard bacteremia. 2. Possible catheter-related sepsis. 3. Leukocytosis. 4. Anemia. 5. End-stage renal disease. 6. Hypertension. 7. History of kidney transplant. plan dc perma cath Problems: Subjective 24 Hr Interval Summary Constitutional: no complaints (no chills,late note pt seen 01/21/17) Respiratory: no complaints Cardiovascular: no complaints Exam/Review of Systems Vital Signs Vitals Vital Signs Date Time Temp Pulse Resp B/P Pulse Ox O2 Delivery O2 Flow Rate FiO2 01/22/17 00:45 18 148/70 98 Room Air 01/21/17 23:48 79 01/21/17 20:51 98.7 Intake and Output 01/21/17 01/21/17 01/22/17 15:00 23:00 07:00 Intake Total 730 ml 50 ml Balance 730 ml 50 ml Exam Respiratory: clear to auscultation Cardiovascular: regular rate and rhythm Gastrointestinal: soft Musculoskeletal: nl extremities to inspection Results Result Diagram: 01/21/17 0445 01/21/17 0445 Medications Medications Current Medications Cinacalcet (Sensipar) 30 mg DAILY PO Last administered on 01/21/17 11:36; Admin Dose 30 MG; Start 01/20/17 at 09:00 Folic Acid (Folic Acid) 1 mg DAILY PO Last administered on 01/21/17 08:07; Admin Dose 1 MG; Start 01/20/17 at 09:00 Labetalol HCl (Normodyne) 200 mg Q8 PO Last administered on 01/22/17 05:34; Admin Dose 200 MG; Start 01/20/17 at 06:00 Lorazepam (Ativan) 1 mg BID PRN PO ANXIETY; Start 01/19/17 at 23:00 Losartan Potassium (Cozaar) 100 mg DAILY PO Last administered on 01/20/17 09: 05; Admin Dose 100 MG; Start 01/20/17 at 09:00 Nifedipine (Procardia Xl) 90 mg Q12 PO Last administered on 01/21/17 21:19; Admin Dose 90 MG; Start 01/20/17 at 09:00 Zolpidem Tartrate 5 mg 5 mg HS PRN PO INSOMNIA Last administered on 01/22/17 01:37; Admin Dose 5 MG; Start 01/19/17 at 23:00 Ceftriaxone Sodium (Rocephin) 50 ml @ 100 mls/hr Q24H IVPB Last administered on 01/21/17 22:40; Admin Dose 100 MLS/HR; Start 01/19/17 at 23:00 Pantoprazole (Protonix Tab) 40 mg DAILY@06 PO Last administered on 01/22/17 05 :30; Admin Dose 40 MG; Start 01/20/17 at 06:00 Acetaminophen (Tylenol Tab) 650 mg Q6H PRN PO PAIN AND OR ELEVATED TEMP Last administered on 01/20/17 14:19; Admin Dose 650 MG; Start 01/20/17 at 06:30 Hydralazine HCl (Apresoline) 10 mg Q6H PRN IV ELEVATED SYSTOLIC BP Last administered on 01/21/17 22:43; Admin Dose 10 MG; Start 01/21/17 at 22:30 DARYL MIRELES MD Jan 22, 2017 06:15
[2017-01-22] MEDS: FOLIC ACID 1 MG TAB PO SCH (08:30)
[2017-01-22] MEDS: SEVELAMER 800 MG TAB PO SCH ×3 (08:30→16:55)
[2017-01-22] MEDS: CINACALCET 30 MG TAB PO SCH (08:30)
[2017-01-22 10:00] LABS: POTASSIUM 4.5 mmol/L (3.5-5.1)
[2017-01-22 10:02] LABS: CREATININE 12.14 mg/dl (0.61-1.24)
[2017-01-22 10:03] LABS: CALCIUM 8.5 mg/dl (8.4-10.2)
[2017-01-22 11:01] VITALS: BP 126/79; PULSE 72; RESP 16
[2017-01-22] MEDS: LOSARTAN 50 MG TAB PO SCH (12:44)
[2017-01-22] MEDS: NIFEdipine (XL) 90 MG TAB PO SCH ×2 (12:45→20:40)
--- NOTE | 2017-01-22 17:26 | PN ---
DATE: 01/22/2017 SUBJECTIVE: Patient is alert, looks comfortable. Denies pain, no fevers. Vital signs stable. No labs. MICROBIOLOGY: Blood culture on admission grew Serratia marcescens, repeat blood cultures negative. PHYSICAL EXAMINATION: GENERAL: This is a well-developed, middle-aged man who is alert, in no distress. HEENT: Head atraumatic, normocephalic. Sclerae anicteric. Buccal mucosa pink. NECK: Supple. CHEST: Rise symmetrical. Breath sounds clear. HEART: S1, S2. ABDOMEN: Soft, bowel sounds present. EXTREMITIES: Without cyanosis. ASSESSMENT: 1. Bacteremia secondary to infected Perm-A-Cath, status post removed yesterday. 2. End-stage renal disease. 3. Hypertension. 4. History of kidney transplant. 5. Anemia. PLAN: The patient remains stable. Continue present care. Discontinue Rocephin. Keep on gentamici n for a total of 2 weeks. Dictated By: INOCENCIO FARIAS PSYCH SOCIAL WORKER for BLAYNE MORAN/SHAE Conf#: [id number] DID#: [id number]
--- NOTE | 2017-01-22 18:31 | PN ---
Date/Time of Note Date/Time of Note DATE: 01/22/17 TIME: 18:30 Assessment/Plan VTE Prophylaxis VTE Prophylaxis Intervention: other Lines/Catheters [facility]from [facility] Saline Lock Urinary Cath still in place: No Assessment/Plan Chief Complaint/Hosp Course IMPRESSION: 1. The patient has gram-negative willard bacteremia. 2. Possible catheter-related sepsis. 3. Leukocytosis. 4. Anemia. 5. End-stage renal disease. 6. Hypertension. 7. History of kidney transplant. plan hd am Problems: Subjective 24 Hr Interval Summary Subjective hx not possible: other (feeling better) Respiratory: no complaints Cardiovascular: no complaints Exam/Review of Systems Vital Signs Vitals Vital Signs Date Time Temp Pulse Resp B/P Pulse Ox O2 Delivery O2 Flow Rate FiO2 01/22/17 11:01 72 16 126/79 99 Room Air 01/21/17 20:51 98.7 Intake and Output 01/21/17 01/21/17 01/22/17 15:00 23:00 07:00 Intake Total 730 ml 1150 ml Balance 730 ml 1150 ml Exam Neck: supple Respiratory: clear to auscultation Cardiovascular: regular rate and rhythm Gastrointestinal: soft Results Result Diagram: 01/21/17 0445 01/22/17 0923 Results 24 hrs Laboratory Tests Test 01/22/17 09:23 Anion Gap 24 H Blood Urea Nitrogen 38 #H Calcium Level 8.5 Carbon Dioxide Level 22 Chloride Level 101 Creatinine 12.14 #H Glucose Level 117 Potassium Level 4.5 Sodium Level 142 Medications Medications Current Medications Cinacalcet (Sensipar) 30 mg DAILY PO Last administered on 01/22/17 08:30; Admin Dose 30 MG; Start 01/20/17 at 09:00 Folic Acid (Folic Acid) 1 mg DAILY PO Last administered on 01/22/17 08:30; Admin Dose 1 MG; Start 01/20/17 at 09:00 Labetalol HCl (Normodyne) 200 mg Q8 PO Last administered on 01/22/17 15:00; Admin Dose 200 MG; Start 01/20/17 at 06:00 Lorazepam (Ativan) 1 mg BID PRN PO ANXIETY; Start 01/19/17 at 23:00 Losartan Potassium (Cozaar) 100 mg DAILY PO Last administered on 01/22/17 12: 44; Admin Dose 100 MG; Start 01/20/17 at 09:00 Nifedipine (Procardia Xl) 90 mg Q12 PO Last administered on 01/22/17 12:45; Admin Dose 90 MG; Start 01/20/17 at 09:00 Zolpidem Tartrate (Ambien) 5 mg HS PRN PO INSOMNIA Last administered on 01:37; Admin Dose 5 MG; Start 01/19/17 at 23:00 Pantoprazole (Protonix Tab) 40 mg DAILY@06 PO Last administered on 01/22/17 05 :30; Admin Dose 40 MG; Start 01/20/17 at 06:00 Acetaminophen (Tylenol Tab) 650 mg Q6H PRN PO PAIN AND OR ELEVATED TEMP Last administered on 01/20/17 14:19; Admin Dose 650 MG; Start 01/20/17 at 06:30 Hydralazine HCl (Apresoline) 10 mg Q6H PRN IV ELEVATED SYSTOLIC BP Last administered on 01/21/17 22:43; Admin Dose 10 MG; Start 01/21/17 at 22:30 DARYL MIRELES MD Jan 22, 2017 18:31
[2017-01-22 21:15] VITALS: BP 157/95; RESP 18
[2017-01-22] MEDS: hydrALAzine 20 MG INJ IV PRN (22:47)
[2017-01-23] VITALS (12 sets, daily range): BP systolic 120–218; BP diastolic 72–117; PULSE 64–94; RESP 16–20
[2017-01-23] MEDS: ZOLPIDEM 5 MG TAB PO PRN (00:53)
[2017-01-23 05:21] LABS: ADD SCAN DIFF NO
[2017-01-23] MEDS: PANTOPRAZOLE (EC) 40 MG TAB PO SCH (05:25)
[2017-01-23 05:26] LABS: BASOPHILS % 0.4 % (0.0-2.0); EOSINOPHILS # 0.1 10^3/ul (0.0-0.5); EOSINOPHILS % 2.4 % (0.0-7.0); HEMATOCRIT 28.2 % (42.0-52.0); LYMPHOCYTES # 1.2 10^3/ul (0.8-2.9); LYMPHOCYTES % 24.5 % (15.0-51.0); MEAN CORPUSCULAR HEMOGLOBIN 28.5 pg (29.0-33.0); MEAN CORPUSCULAR HGB CONC 31.9 g/dl (32.0-37.0); MEAN CORPUSCULAR VOLUME 89.2 fl (82.0-101.0); MEAN PLATELET VOLUME 12.1 fl (7.4-10.4); MONOCYTE # 0.4 10^3/ul (0.3-0.9); MONOCYTES % 8.5 % (0.0-11.0); NEUTROPHIL # 3.2 10^3/ul (1.6-7.5); PLATELET COUNT 156 10^3/UL (140-415); RED BLOOD COUNT 3.16 10^6/ul (4.70-6.10); RED CELL DISTRIBUTION WIDTH 14.2 % (11.5-14.5); WHITE BLOOD COUNT 4.9 10^3/ul (4.8-10.8)
[2017-01-23] MEDS: LABETALOL 200 MG TAB PO SCH ×3 (05:26→21:42)
[2017-01-23 05:54] LABS: POTASSIUM 4.9 mmol/L (3.5-5.1)
[2017-01-23 05:56] LABS: CREATININE 13.09 mg/dl (0.61-1.24)
[2017-01-23 05:57] LABS: CALCIUM 8.1 mg/dl (8.4-10.2)
[2017-01-23] MEDS: SEVELAMER 800 MG TAB PO SCH ×4 (07:35→21:41)
[2017-01-23] MEDS: FOLIC ACID 1 MG TAB PO SCH (09:00)
[2017-01-23] MEDS: CINACALCET 30 MG TAB PO SCH (09:00)
[2017-01-23] MEDS: NIFEdipine (XL) 90 MG TAB PO SCH ×2 (09:00→21:42)
[2017-01-23] MEDS: LOSARTAN 50 MG TAB PO SCH (09:00)
--- NOTE | 2017-01-23 11:43 | PN ---
Date/Time of Note Date/Time of Note DATE: 01/23/17 TIME: 11:41 Assessment/Plan VTE Prophylaxis VTE Prophylaxis Intervention: ambulation Lines/Catheters IV [facility] ([facility] Saline Lock Central line still needed: No Urinary Cath still in place: No Assessment/Plan Chief Complaint/Hosp Course 1. The patient has gram-negative willard bacteremia, continue a/b IV. 2. Possible catheter-related sepsis. 3. Leukocytosis. 4. Anemia. 5. End-stage renal disease with HD, waiting Franko cath placement. 6. Hypertension. 7. History of kidney transplant. Problems: Subjective 24 Hr Interval Summary Constitutional: no complaints Eyes: no complaints ENT: no complaints Respiratory: no complaints Cardiovascular: no complaints Gastrointestinal: no complaints Genitourinary: bleeding Musculoskeletal: no complaints Skin: no complaints Neurologic: no complaints Exam/Review of Systems Vital Signs Vitals Vital Signs Date Time Temp Pulse Resp B/P Pulse Ox O2 Delivery O2 Flow Rate FiO2 01/23/17 07:10 97.4 84 16 120/72 01/22/17 21:15 100 01/22/17 11:01 Room Air Intake and Output 01/22/17 01/22/17 01/23/17 14:59 22:59 06:59 Intake Total 1020 ml 1050 ml Balance 1020 ml 1050 ml Exam Constitutional: alert, oriented, well developed Psych: no complaints Head: normocephalic Eyes: nl conjunctiva ENMT: nl external ears & nose Neck: supple Respiratory: clear to auscultation Cardiovascular: regular rate and rhythm Gastrointestinal: soft Genitourinary - Male: nl penis Skin: other (right portocath removed) Results Result Diagram: 01/23/17 0450 01/23/17 0450 Results 24 hrs Laboratory Tests Test 01/23/17 04:50 Anion Gap 25 H Basophils # 0.0 Basophils % 0.4 Blood Urea Nitrogen 54 H Calcium Level 8.1 L Carbon Dioxide Level 20 L Chloride Level 101 Creatinine 13.09 H Eosinophils # 0.1 Eosinophils % 2.4 Glucose Level 87 Hematocrit 28.2 L Hemoglobin 9.0 L Lymphocytes # 1.2 Lymphocytes % 24.5 Mean Corpuscular Hemoglobin 28.5 L Mean Corpuscular Hemoglobin Concent 31.9 L Mean Corpuscular Volume 89.2 Mean Platelet Volume 12.1 H Monocytes # 0.4 Monocytes % 8.5 Neutrophils # 3.2 Neutrophils % 64.0 Nucleated Red Blood Cells # 0.0 Nucleated Red Blood Cells % 0.0 Platelet Count 156 # Potassium Level 4.9 Red Blood Count 3.16 L Red Cell Distribution Width 14.2 Sodium Level 141 White Blood Count 4.9 Medications Medications Current Medications Cinacalcet (Sensipar) 30 mg DAILY PO Last administered on 01/22/17 08:30; Admin Dose 30 MG; Start 01/20/17 at 09:00 Folic Acid (Folic Acid) 1 mg DAILY PO Last administered on 01/22/17 08:30; Admin Dose 1 MG; Start 01/20/17 at 09:00 Labetalol HCl (Normodyne) 200 mg Q8 PO Last administered on 01/23/17 05:26; Admin Dose 200 MG; Start 01/20/17 at 06:00 Lorazepam (Ativan) 1 mg BID PRN PO ANXIETY; Start 01/19/17 at 23:00 Losartan Potassium (Cozaar) 100 mg DAILY PO Last administered on 01/22/17 12: 44; Admin Dose 100 MG; Start 01/20/17 at 09:00 Nifedipine (Procardia Xl) 90 mg Q12 PO Last administered on 01/22/17 20:40; Admin Dose 90 MG; Start 01/20/17 at 09:00 Zolpidem Tartrate (Ambien) 5 mg HS PRN PO INSOMNIA Last administered on 00:53; Admin Dose 5 MG; Start 01/19/17 at 23:00 Pantoprazole (Protonix Tab) 40 mg DAILY@06 PO Last administered on 01/23/17 05 :25; Admin Dose 40 MG; Start 01/20/17 at 06:00 Acetaminophen (Tylenol Tab) 650 mg Q6H PRN PO PAIN AND OR ELEVATED TEMP Last administered on 01/20/17 14:19; Admin Dose 650 MG; Start 01/20/17 at 06:30 Hydralazine HCl (Apresoline) 10 mg Q6H PRN IV ELEVATED SYSTOLIC BP Last administered on 01/22/17 22:47; Admin Dose 10 MG; Start 01/21/17 at 22:30 JAKE YANEZ 17, 2017 11:43
[2017-01-23] MEDS ORDERED: HEPARIN 1000 UNITS/ML 10 ML INJ ONE ×2 (14:13→15:13)
[2017-01-23] MEDS ORDERED: LIDOCAINE 1% (MDV) 20 ML INJ ONE ×2 (14:13→15:13)
[2017-01-23] MEDS ORDERED: IOHEXOL 300MG/ML 30 ML BTL ONE (14:50)
[2017-01-23] MEDS ORDERED: DIPHENHYDRAMINE 50 MG INJ ONE (15:32)
[2017-01-23] MEDS ORDERED: MIDAZOLAM 1 MG/ML 2 ML INJ ONE (15:32)
[2017-01-23] MEDS ORDERED: FENTAnyl 50 MCG/ML VIAL ONE (15:32)
[2017-01-23] MEDS ORDERED: CEFAZOLIN 1 GM/50 ML (PMX) 50 ML IVPB ONE (15:32)
--- NOTE | 2017-01-23 16:01 | CONS ---
Date/Time of Note Date/Time of Note DATE: 01/23/17 TIME: 15:59 Assessment/Plan Assessment/Plan Chief Complaint/Hosp Course SUBJECTIVE: Awake. Denies pain, no fevers. MICROBIOLOGY: Blood culture on admission grew Serratia marcescens, repeat blood cultures negative. PHYSICAL EXAMINATION: GENERAL: This is a well-developed, middle-aged man who is alert, in no distress. HEENT: Head atraumatic, normocephalic. Sclerae anicteric. Buccal mucosa pink. NECK: Supple. CHEST: Rise symmetrical. Breath sounds clear. HEART: S1, S2. ABDOMEN: Soft, bowel sounds present. EXTREMITIES: Without cyanosis. ASSESSMENT: 1. Bacteremia secondary to infected Perm-A-Cath, status post removed. 2. End-stage renal disease. 3. Hypertension. 4. History of kidney transplant. 5. Anemia. PLAN: The patient remains stable. Continue present care. Keep on gentamicin for a total of 2 weeks. Pending hernan [facility] staff Problems: Consultation Date/Type/Reason Admit Date/Time Jan 19, 2017 at 19:07 Type of Consultation: ID Exam/Review of Systems Vital Signs Vitals Vital Signs Date Time Temp Pulse Resp B/P Pulse Ox O2 Delivery O2 Flow Rate FiO2 01/23/17 07:10 97.4 84 16 120/72 01/22/17 21:15 100 01/22/17 11:01 Room Air Intake and Output 01/22/17 01/22/17 01/23/17 15:00 23:00 07:00 Intake Total 1020 ml 1050 ml Balance 1020 ml 1050 ml Results Result Diagram: 01/23/17 0450 01/23/17 0450 Results 24 hrs Laboratory Tests Test 01/23/17 04:50 Anion Gap 25 H Basophils # 0.0 Basophils % 0.4 Blood Urea Nitrogen 54 H Calcium Level 8.1 L Carbon Dioxide Level 20 L Chloride Level 101 Creatinine 13.09 H Eosinophils # 0.1 Eosinophils % 2.4 Glucose Level 87 Hematocrit 28.2 L Hemoglobin 9.0 L Lymphocytes # 1.2 Lymphocytes % 24.5 Mean Corpuscular Hemoglobin 28.5 L Mean Corpuscular Hemoglobin Concent 31.9 L Mean Corpuscular Volume 89.2 Mean Platelet Volume 12.1 H Monocytes # 0.4 Monocytes % 8.5 Neutrophils # 3.2 Neutrophils % 64.0 Nucleated Red Blood Cells # 0.0 Nucleated Red Blood Cells % 0.0 Platelet Count 156 # Potassium Level 4.9 Red Blood Count 3.16 L Red Cell Distribution Width 14.2 Sodium Level 141 White Blood Count 4.9 Medications Medications Current Medications Cinacalcet (Sensipar) 30 mg DAILY PO Last administered on 01/22/17 08:30; Admin Dose 30 MG; Start 01/20/17 at 09:00 Folic Acid (Folic Acid) 1 mg DAILY PO Last administered on 01/22/17 08:30; Admin Dose 1 MG; Start 01/20/17 at 09:00 Labetalol HCl (Normodyne) 200 mg Q8 PO Last administered on 01/23/17 05:26; Admin Dose 200 MG; Start 01/20/17 at 06:00 Lorazepam (Ativan) 1 mg BID PRN PO ANXIETY; Start 01/19/17 at 23:00 Losartan Potassium (Cozaar) 100 mg DAILY PO Last administered on 01/22/17 12: 44; Admin Dose 100 MG; Start 01/20/17 at 09:00 Nifedipine (Procardia Xl) 90 mg Q12 PO Last administered on 01/22/17 20:40; Admin Dose 90 MG; Start 01/20/17 at 09:00 Zolpidem Tartrate (Ambien) 5 mg HS PRN PO INSOMNIA Last administered on 00:53; Admin Dose 5 MG; Start 01/19/17 at 23:00 Pantoprazole (Protonix Tab) 40 mg DAILY@06 PO Last administered on 01/23/17 05 :25; Admin Dose 40 MG; Start 01/20/17 at 06:00 Acetaminophen (Tylenol Tab) 650 mg Q6H PRN PO PAIN AND OR ELEVATED TEMP Last administered on 01/20/17 14:19; Admin Dose 650 MG; Start 01/20/17 at 06:30 Hydralazine HCl (Apresoline) 10 mg Q6H PRN IV ELEVATED SYSTOLIC BP Last administered on 01/22/17 22:47; Admin Dose 10 MG; Start 01/21/17 at 22:30 INOCENCIO FARIAS NP Jan 23, 2017 16:00
--- NOTE | 2017-01-23 16:36 | RADRPT ---
PROCEDURE: Attempted ultrasound and fluoroscopic guided placement of right internal jugular vein t unneled dialysis catheter. Right internal jugular vein venogram. CLINICAL INDICATION: Renal failure. TECHNIQUE: Prior to the procedure, informed consent was obtained. Risks including bleeding, infection, and pneu mothorax were explained to the patient. The patient understood and was willing to proceed. A procedu ral pause was performed. The patient's name, date of , and procedure to be performed were verif ied. The central line was inserted with all elements of maximal sterile barrier technique. All of th e following were used: head covering, facial mask, sterile gown, sterile gloves, a large sterile she et, hand hygiene, and 2% chlorhexidine for cutaneous antisepsis. The right neck and anterior/super ior chest wall was prepped and draped in usual sterile fashion. Limited sonography of the right neck was then performed. Noted is a patent right internal jugular ve in. Ultrasound images were recorded and stored in the patient's medical record. Following the local injection of Xylocaine, the right internal jugular vein was punctured under sono graphic guidance with a 20-gauge needle through which a 0.018 inch floppy tip guidewire was advanced into the right internal jugular vein with difficulty. The guide wire could not be advanced into th e superior vena cava. For this reason, venography was performed through the 4-Kiswahili sheath by inje cting 5 ml of Omnipaque-300. This demonstrates complete occlusion of the superior vena cava. There fore, the guidewire and sheath were removed. The site was dressed. The patient tolerated the proce dure well. COMPARISON: None. FINDINGS: Venogram images demonstrate patent right internal jugular vein and complete occlusion at the level o f the right brachiocephalic vein. The ultrasound images demonstrate the needle entering the right i nternal jugular vein. Ultrasound images were recorded and stored in the patient's medical record. IMPRESSION: 1. Ultrasound and fluoroscopic guided venogram demonstrating complete occlusion of the right interna l jugular vein at the junction with the right brachiocephalic vein. Call report: A call report of the findings was made to Dr. Gómez on 01/23/2017 at 1500 hours. We will attempt to place a tunneled dialysis catheter in the femoral vein. RPTAT: QQ .Yosef Faith MD, MD Date Time Electronically viewed and signed by .Yosef Faith MD, on 01/23/2017 16:36 .R/
--- NOTE | 2017-01-23 16:46 | RADRPT ---
PROCEDURE: Ultrasound guidance for placement of needle in right internal jugular vein. CLINICAL INDICATION: Venous access. TECHNIQUE: Prior to the procedure, informed consent was obtained. Risks including bleeding, infection, and pneu mothorax were explained to the patient. The patient understood and was willing to proceed. A procedu ral pause was performed. The patient's name, date of , and procedure to be performed were verif ied. The central line was inserted with all elements of maximal sterile barrier technique. All of th e following were used: head covering, facial mask, sterile gown, sterile gloves, a large sterile she et, hand hygiene, and 2% chlorhexidine for cutaneous antisepsis. The right neck and anterior/super ior chest wall was prepped and draped in usual sterile fashion. Limited sonography of the right neck was then performed. Noted is a patent right internal jugular ve in. Ultrasound images were recorded and stored in the patient's medical record. Following the local injection of Xylocaine, the right internal jugular vein was punctured under sono graphic guidance with a 20-gauge needle through which a 0.018 inch floppy tip guidewire was advanced into the right internal jugular vein. The patient tolerated the procedure well. The remainder of the procedure was performed and dictated under separate cover. COMPARISON: None. FINDINGS: The ultrasound images demonstrate a patent right internal jugular vein. The subsequent images demon strate the needle entering the right internal jugular vein. IMPRESSION: 1. Ultrasound guidance for a needle placement in right internal jugular vein. RPTAT: QQ .Yosef Faith MD, Date Time Electronically viewed and signed by .Yosef Faith MD, on 01/23/2017 16:45 .R/
--- NOTE | 2017-01-23 17:46 | RADRPT ---
PROCEDURE: PLACEMENT RIGHT COMMON FEMORAL VEIN TUNNELED DIALYSIS CATHETER. CLINICAL INDICATION: Renal failure. TECHNIQUE: Prior to the procedure, 1 gram of Ancef was administered intravenously for prophylaxis. Informed consent was obtained. Risks including bleeding and infection were explained to the patient. The patient understood and was willing to proceed. A procedural pause was performed. The patient's name, date of , and procedure to be performed were verified. The central line was inserted with all elements of maximal sterile barrier technique. All of the following were used: head covering, f acial mask, sterile gown, sterile gloves, a large sterile sheet, hand hygiene, and 2% chlorhexidine for cutaneous antisepsis. The right groin and right thigh were prepped and draped in usual sterile fashion. Following the local injection of Xylocaine, the right common femoral vein was punctured under sonogr aphic guidance with a 20-gauge needle through which a 0.018 inch floppy tip guidewire was advanced i nto the inferior vena cava. The tract was dilated to 5 Rw[place]an and the wire was then replaced with a 0.035 in Amplatz guidewire. A tunnel was then created from the anterior right thigh to the puncture site in the right inguinal region and the catheter was pulled through the tract. Serial dilatation was then performed and a 16 R[place]an peel away sheath was introduced. The 14.5 Rwandan 33 cm length Palindrome dialysis catheter was advanced through the 16 Rwandan peel-aw ay sheath. The tip of the catheter was confirmed in position within the lower right atrium. The peel -away sheath was removed. The 2 ports were each flushed with 2.3 ml of 1:1000 heparin. The catheter was secured to the skin w ith 2-0 silk. The wound in the inguinal region was closed with 4-0 Vicryl suture using subcuticular running technique. The site was dressed. The patient tolerated the procedure well. COMPARISON: None. FINDINGS: Ultrasound images were recorded and stored in the patient's medical record. Final radiographic images demonstrate the tip of the catheter in the upper right atrium. A total of 0.2 minutes of fluoroscopy time was used. The ultrasound images demonstrate the needle entering th e femoral vein. IMPRESSION: 1. Satisfactory placement of tunneled right femoral dialysis catheter. RPTAT: QQ .Yosef Faith MD, MD Date Time Electronically viewed and signed by .Yosef Faith MD, MD on 01/23/2017 17:46 .R/
--- NOTE | 2017-01-23 17:48 | RADRPT ---
PROCEDURE: Ultrasound guidance for placement of needle in right common femoral vein. CLINICAL INDICATION: Venous access. TECHNIQUE: Prior to the procedure, informed consent was obtained. Risks including bleeding, infection, and pneu mothorax were explained to the patient. The patient understood and was willing to proceed. A procedu ral pause was performed. The patient's name, date of , and procedure to be performed were verif ied. The central line was inserted with all elements of maximal sterile barrier technique. All of th e following were used: head covering, facial mask, sterile gown, sterile gloves, a large sterile she et, hand hygiene, and 2% chlorhexidine for cutaneous antisepsis. The right inguinal region was pr epped and draped in usual sterile fashion. Limited sonography of the right inguinal region was then performed. Noted is a patent right common f emoral vein. Ultrasound images were recorded and stored in the patient's medical record. Following the local injection of Xylocaine, the right common femoral vein was punctured under sonogr aphic guidance with a 20-gauge needle through which a 0.018 inch floppy tip guidewire was advanced i nto the right common iliac vein. The patient tolerated the procedure well. The remainder of the pr ocedure was performed and dictated under separate cover. COMPARISON: None. FINDINGS: The ultrasound images demonstrate a patent right common femoral vein. The subsequent images demonst rate the needle entering the right common femoral vein. IMPRESSION: 1. Ultrasound guidance for a needle placement in right common femoral vein. RPTAT: QQ .Yosef Faith MD, Date Time Electronically viewed and signed by .Yosef Faith MD, MD on 01/23/2017 17:48 .R/
[2017-01-23] MEDS: hydrALAzine 20 MG INJ IV PRN (18:32)
[2017-01-23] MEDS: ACETAMINOPHEN 325 MG TAB PO PRN (21:42)
[2017-01-23] MEDS: GENTAMICIN 80 MG/NS (PMX) 50 ML IVPB SCH (22:28)
[2017-01-24] VITALS (11 sets, daily range): BP systolic 126–174; BP diastolic 77–106; PULSE 74–80; RESP 16–19
[2017-01-24] MEDS: LABETALOL 200 MG TAB PO SCH ×3 (05:56→20:59)
[2017-01-24] MEDS: PANTOPRAZOLE (EC) 40 MG TAB PO SCH (05:56)
[2017-01-24] MEDS: NIFEdipine (XL) 90 MG TAB PO SCH ×2 (09:00→20:58)
[2017-01-24] MEDS: LOSARTAN 50 MG TAB PO SCH (09:00)
[2017-01-24] MEDS: CINACALCET 30 MG TAB PO SCH (09:06)
[2017-01-24] MEDS: FOLIC ACID 1 MG TAB PO SCH (09:06)
[2017-01-24] MEDS: SEVELAMER 800 MG TAB PO SCH ×2 (12:50→17:31)
--- NOTE | 2017-01-24 13:10 | PN ---
Date/Time of Note Date/Time of Note DATE: 01/24/17 TIME: 13:06 Assessment/Plan VTE Prophylaxis VTE Prophylaxis Intervention: ambulation Lines/Catheters IV Catheter Type (from [facility]): Saline Lock Central line still needed: Yes Urinary Cath still in place: No Assessment/Plan Chief Complaint/Hosp Course 1. The patient has gram-negative willard bacteremia, if cultures are negative, pt can be d/c. 2. ESRD, HD with new Franko catheter right groin 3. Leukocytosis, improving. 4. Anemia. 6. Hypertension. 7. History of kidney transplant. Problems: Subjective 24 Hr Interval Summary Constitutional: no complaints Eyes: no complaints ENT: no complaints Respiratory: no complaints Gastrointestinal: no complaints Genitourinary: no complaints Exam/Review of Systems Vital Signs Vitals Vital Signs Date Time Temp Pulse Resp B/P Pulse Ox O2 Delivery O2 Flow Rate FiO2 01/24/17 08:12 98.4 73 16 126/77 100 01/23/17 19:59 Room Air Intake and Output 01/23/17 01/23/17 01/24/17 15:00 23:00 07:00 Intake Total 400 ml 250 ml Output Total 2400 ml 300 ml Balance -2000 ml -50 ml Exam Constitutional: alert, oriented, well developed Psych: nl mood/affect, no complaints Eyes: nl conjunctiva ENMT: nl external ears & nose Neck: supple Respiratory: clear to auscultation Cardiovascular: regular rate and rhythm Gastrointestinal: soft Extremities: other (left Franko cath) Results Result Diagram: 01/23/17 0450 01/23/17 0450 Medications Medications Current Medications Cinacalcet (Sensipar) 30 mg DAILY PO Last administered on 01/24/17 09:06; Admin Dose 30 MG; Start 01/20/17 at 09:00 Folic Acid (Folic Acid) 1 mg DAILY PO Last administered on 01/24/17 09:06; Admin Dose 1 MG; Start 01/20/17 at 09:00 Labetalol HCl (Normodyne) 200 mg Q8 PO Last administered on 01/24/17 05:56; Admin Dose 200 MG; Start 01/20/17 at 06:00 Lorazepam (Ativan) 1 mg BID PRN PO ANXIETY; Start 01/19/17 at 23:00 Losartan Potassium (Cozaar) 100 mg DAILY PO Last administered on 01/22/17 12: 44; Admin Dose 100 MG; Start 01/20/17 at 09:00 Nifedipine (Procardia Xl) 90 mg Q12 PO Last administered on 01/23/17 21:42; Admin Dose 90 MG; Start 01/20/17 at 09:00 Zolpidem Tartrate (Ambien) 5 mg HS PRN PO INSOMNIA Last administered on 00:53; Admin Dose 5 MG; Start 01/19/17 at 23:00 Pantoprazole (Protonix Tab) 40 mg DAILY@06 PO Last administered on 01/24/17 05 :56; Admin Dose 40 MG; Start 01/20/17 at 06:00 Acetaminophen (Tylenol Tab) 650 mg Q6H PRN PO PAIN AND OR ELEVATED TEMP Last administered on 01/23/17 21:42; Admin Dose 650 MG; Start 01/20/17 at 06:30 Hydralazine HCl (Apresoline) 10 mg Q6H PRN IV ELEVATED SYSTOLIC BP Last administered on 01/23/17 18:32; Admin Dose 10 MG; Start 01/21/17 at 22:30 JAKE YANEZ 18, 2017 13:09
[2017-01-24] MEDS: GENTAMICIN 80 MG/NS (PMX) 50 ML IVPB SCH (14:45)
--- NOTE | 2017-01-24 16:33 | CONS ---
Date/Time of Note Date/Time of Note DATE: 01/24/17 TIME: 16:32 Assessment/Plan Assessment/Plan Chief Complaint/Hosp Course SUBJECTIVE: Alert, feels good, nad, s/p HD MICROBIOLOGY: Blood culture on admission grew Serratia marcescens, repeat blood cultures negative. PHYSICAL EXAMINATION: GENERAL: This is a well-developed, middle-aged man who is alert, in no distress. HEENT: Head atraumatic, normocephalic. Sclerae anicteric. Buccal mucosa pink. NECK: Supple. CHEST: Rise symmetrical. Breath sounds clear. HEART: S1, S2. ABDOMEN: Soft, bowel sounds present. EXTREMITIES: Without cyanosis. ASSESSMENT: 1. Bacteremia secondary to infected Perm-A-Cath, status post removed. 2. End-stage renal disease. 3. Hypertension. 4. History of kidney transplant. 5. Anemia. PLAN: The patient remains stable. Continue present care. Ok dc gentamicin post HD for 2 weeks more weeks. DW staff Problems: Consultation Date/Type/Reason Admit Date/Time Jan 19, 2017 at 19:07 Type of Consultation: ID Exam/Review of Systems Vital Signs Vitals Vital Signs Date Time Temp Pulse Resp B/P Pulse Ox O2 Delivery O2 Flow Rate FiO2 01/24/17 14:05 74 18 01/24/17 08:12 98.4 126/77 100 01/23/17 19:59 Room Air Intake and Output 01/23/17 01/23/17 01/24/17 15:00 23:00 07:00 Intake Total 400 ml 250 ml Output Total 2400 ml 300 ml Balance -2000 ml -50 ml Results Result Diagram: 01/23/17 0450 01/23/17 045 Medications Medications Current Medications Cinacalcet (Sensipar) 30 mg DAILY PO Last administered on 01/24/17 09:06; Admin Dose 30 MG; Start 01/20/17 at 09:00 Folic Acid (Folic Acid) 1 mg DAILY PO Last administered on 01/24/17 09:06; Admin Dose 1 MG; Start 01/20/17 at 09:00 Labetalol HCl (Normodyne) 200 mg Q8 PO Last administered on 01/24/17 05:56; Admin Dose 200 MG; Start 01/20/17 at 06:00 Lorazepam (Ativan) 1 mg BID PRN PO ANXIETY; Start 01/19/17 at 23:00 Losartan Potassium (Cozaar) 100 mg DAILY PO Last administered on 01/22/17 12: 44; Admin Dose 100 MG; Start 01/20/17 at 09:00 Nifedipine (Procardia Xl) 90 mg Q12 PO Last administered on 01/23/17 21:42; Admin Dose 90 MG; Start 01/20/17 at 09:00 Zolpidem Tartrate (Ambien) 5 mg HS PRN PO INSOMNIA Last administered on 00:53; Admin Dose 5 MG; Start 01/19/17 at 23:00 Pantoprazole (Protonix Tab) 40 mg DAILY@06 PO Last administered on 01/24/17 05 :56; Admin Dose 40 MG; Start 01/20/17 at 06:00 Acetaminophen (Tylenol Tab) 650 mg Q6H PRN PO PAIN AND OR ELEVATED TEMP Last administered on 01/23/17 21:42; Admin Dose 650 MG; Start 01/20/17 at 06:30 Hydralazine HCl (Apresoline) 10 mg Q6H PRN IV ELEVATED SYSTOLIC BP Last administered on 01/23/17 18:32; Admin Dose 10 MG; Start 01/21/17 at 22:30 INOCENCIO FARIAS NP Jan 24, 2017 16:33
[2017-01-24] MEDS: hydrALAzine 20 MG INJ IV PRN (22:29)
[2017-01-25 00:29] VITALS: BP 121/64
[2017-01-25] MEDS: PANTOPRAZOLE (EC) 40 MG TAB PO SCH (05:49)
[2017-01-25] MEDS: LABETALOL 200 MG TAB PO SCH ×2 (05:50→14:11)
[2017-01-25 08:20] VITALS: BP 109/63; RESP 18
[2017-01-25] MEDS: CINACALCET 30 MG TAB PO SCH (08:48)
[2017-01-25] MEDS: LOSARTAN 50 MG TAB PO SCH (08:48)
[2017-01-25] MEDS: NIFEdipine (XL) 90 MG TAB PO SCH (08:48)
[2017-01-25] MEDS: SEVELAMER 800 MG TAB PO SCH ×2 (08:48→11:35)
[2017-01-25] MEDS: FOLIC ACID 1 MG TAB PO SCH (08:50)
--- NOTE | 2017-01-25 14:04 | PDOCDIS ---
Discharge Instructions CONDITION Patient Condition: Stable HOME CARE INSTRUCTIONS: Special Diet: 2GM NA ACTIVITY: Activity Restrictions: Slowly Increase Activity FOLLOW UP/APPOINTMENTS Appointments f/u dr mireles 2 wks DARYL MIRELES MD Jan 25, 2017 14:04
[2017-01-25] MEDS ORDERED: GENT100P4 IV (14:08)
[2017-01-25] MEDS ORDERED: CIPR500T4 PO (14:08)
== END 2017-01-25 15:12 | disposition home or self-care (01) | DRG 314 ==
LOC: E/R 16:54 → PP2 19:07
PROVIDERS: ADMIT Internal Medicine Nephrology; ATTEND Internal Medicine Nephrology
PROC: 5A1D60Z (ICD-10-PCS; 2017-01-20)
PROC: 02PY33Z Removal of Infusion Device from Great Vessel, Percutaneous Approach (ICD-10-PCS; principal; 2017-01-21)
PROC: 02H633Z Insertion of Infusion Device into Right Atrium, Percutaneous Approach (ICD-10-PCS; 2017-01-23)
PROC: B244YZZ Ultrasonography of Right Heart using Other Contrast (ICD-10-PCS; 2017-01-23)
DX: T82.7XXA Infection and inflammatory reaction due to other cardiac and vascular devices, implants and grafts, initial encounter (principal); A41.9 Sepsis, unspecified organism; T86.12 Kidney transplant failure; N18.6 End stage renal disease; I12.0 Hypertensive chronic kidney disease with stage 5 chronic kidney disease or end stage renal disease; Z94.0 Kidney transplant status; Y84.8 Other medical procedures as the cause of abnormal reaction of the patient, or of later complication, without mention of misadventure at the time of the procedure; Y92.013 Bedroom of single-family (private) house as the place of occurrence of the external cause; Z99.2 Dependence on renal dialysis; D64.9 Anemia, unspecified
CPT/HCPCS: 36415; 36556; 36558; 36589; 71010; 76942; 80048; 80053; 80202; 83605; 84484; 85025; 85610; 85730; 87040; 87070; 87400; 90686; 90935; 93005; 96374; 96375; C1750; C1752; J0360; J0690; J0692; J0696; J1200; J1580; J1644; J2250; J3010; J3370; J7030; Q9967

== ENCOUNTER 2018-06-04 01:34 | Observation (INO) | END 2018-06-06 13:30 | disposition home or self-care (01) ==

== ENCOUNTER 2019-02-19 19:05 | Emergency (ER) | payer MEDICAID ==
[~2019-02-19] VITALS: Ht 160 cm; Wt 60.1 kg
[~2019-02-19 19:05] MED LIST changes: -AMOX1TAB67 PO; -CINA60TA PO; -CLON0.2T5 PO; +CNC30T PO; +ESOM40CA PO; -HYDR-902 PO; +LOSA100T15 PO; -LOSA100T7 PO; -NEPH PO; -PANT40TA3 PO; -PARO20TA58 PO; -SEVE800T10 PO; +SVL800C PO; -ZOLP5TAB6 PO; +ZOLP5TAB7 PO
[2019-02-19 19:09] VITALS: Ht 160 cm; Wt 60.1 kg
[2019-02-19] MEDS ORDERED: ACETAMINOPHEN 500 MG TAB PO STA (22:50)
[2019-02-19] MEDS ORDERED: TRAM50TA2 PO (22:53)
[2019-02-19] MEDS ORDERED: ACET325T33 PO (22:53)
[2019-02-19] MEDS ORDERED: ONDA4TAB14 PO (22:56)
[2019-02-19] MEDS ORDERED: traMADol 50 MG TAB PO ONE (23:00)
[2019-02-19] MEDS ORDERED: METOCLOPRAMIDE 10 MG INJ IM ONE (23:00)
[2019-02-19] MEDS ORDERED: DIPHENHYDRAMINE 25 MG CAP PO ONE (23:00)
[2019-02-19 23:35] VITALS: BP 153/84; PULSE 74; RESP 16
--- NOTE | 2019-02-20 06:31 | ERD ---
ER Documentation Chief Complaint Chief Complaint ROSADO for 3 weeks on R side and "feels a mass inside" HPI History of Present Illness: 43-year-old male with past medical history medical history of hypertension, chronic kidney disease, GERD coming in today with complaint of 3 weeks of headache. Dialysis patient who receives treatment on Thursday. Patient describes the headache as throbbing, deep, 8 of 10 pain, nonradiating. Associated symptoms vomiting and near syncopal episode. Patient reports that headache has been nonprogressive until the past 4-5 days. At home pharmacological/nonpharmacological treatment for symptoms: Denies social concerns; Denies recent foreign travel ROS All systems reviewed and are negative except as per history of present illness. Medications Home Meds Active Scripts Ondansetron (Ondansetron Odt) 4 Mg Tab.rapdis, 4 MG PO Q8 PRN for NAUSEA AND/OR VOMITING, #10 TAB Prov:MARGARET HOLLY V [employer] 02/19/19 Tramadol HCl (Tramadol HCl) 50 Mg Tablet, 50 MG PO Q12 PRN for PAIN, #4 TAB Prov:MARGARET HOLLY V [employer] 02/19/19 Acetaminophen* (Tylenol*) 325 Mg Tablet, 2 TAB PO Q6 PRN for PAIN LEVEL 1-5, #20 TAB Prov:MARGARET HOLLY V [employer] 02/19/19 Reported Medications Cinacalcet* (Sensipar*) 30 Mg Tab, 30 MG PO DAILY, TAB 01/19/17 Esomeprazole Mag Trihydrate (Nexium) 40 Mg Capsule.dr, 40 MG PO DAILY, #30 CAP 01/19/17 Lorazepam* (Lorazepam*) 1 Mg Tablet, 1 MG PO BID PRN for ANXIETY, TAB 08/08/15 Zolpidem Tartrate* (Zolpidem Tartrate*) 5 Mg Tablet, 5 MG PO HS PRN, TAB 08/08/15 Nifedipine* (Procardia XL*) 90 Mg/Bottle Tab.osm.24, 90 MG PO Q12, TAB.SA 08/08/15 Losartan Potassium* (Losartan Potassium*) 100 Mg Tablet, 100 MG PO DAILY, TAB 05/01/15 Labetalol Hcl* (Labetalol Hcl*) 200 Mg Tablet, 200 MG PO Q8, TAB 05/01/15 Folic Acid* (Folic Acid*) 1 Mg Tablet, 1 MG PO DAILY, TAB 05/01/15 Sevelamer Hcl* (Renagel*) 800 Mg Tablet, 800 MG PO WITH MEALS, TAB 06/23/14 Allergies Allergies: Coded Allergies: metronidazole (Unverified Adverse Reaction, Severe, DELIRIUM, 01/19/17) PMhx/Soc History of Surgery: Yes (25 YEARS AGO , KIDNEY TRANSPLANT) Anesthesia Reaction: No Hx Neurological Disorder: No Hx Respiratory Disorders: No Hx Cardiac Disorders: Yes (HTN, DYSLIPIDEMIA) Hx Psychiatric Problems: No Hx Miscellaneous Medical Probl: Yes (ESRD, on dialysis) Hx Alcohol Use: No Hx Substance Use: No Hx Tobacco Use: No Smoking Status: Never smoker FmHx Family History: diabetes Physical Exam Vitals Vital Signs Date Temp Pulse Resp B/P (MAP) Pulse Ox O2 O2 Flow FiO2 Time Delivery Rate 02/19/19 98.1 74 16 153/84 99 Room Air 23:35 (107) 02/19/19 98.7 70 16 170/86 100 19:09 (114) Physical Exam Const: No acute distress, afebrile Head: Atraumatic Eyes: Normal Conjunctiva ENT: Normal External Ears, Nose and Mouth. Neck: Full range of motion. No meningismus. Resp: Clear to auscultation bilaterally Cardio: Regular rate and rhythm, no murmurs Abd: Soft, non tender, non distended. No guarding, no masses, no rigidity Skin: No petechiae or rashes Back: No midline or flank tenderness Ext: No cyanosis, or edema Neur: Awake and alert x3, speaking in clear sentences, no focal deficits or facial asymmetry Psych: Normal Mood and Affect Results 24 hrs Laboratory Tests Test 02/19/19 23:24 Bedside Glucose 85 mg/dL Current Medications Medications Dose Sig/Kayden Start Time Status Last (Trade) Ordered Route PRN Stop Time Admin Dose Reason Admin 10 mg ONCE ONCE 02/19/19 DC 02/19/19 Metoclopramid IM 23:00 23:15 e HCl 02/19/19 23:01 (Reglan) 12.5 mg ONCE ONCE 02/19/19 DC 02/19/19 Diphenhydrami PO 23:00 23:14 ne HCl 02/19/19 23:01 (Benadryl) 1,000 mg ONCE STAT 02/19/19 DC 02/19/19 Acetaminophen PO 22:50 23:15 (Tylenol 02/19/19 22:53 Tab) Tramadol 50 mg ONCE ONCE 02/19/19 DC 02/19/19 HCl PO 23:00 23:14 (Ultram) 02/19/19 23:03 Procedures/MDM ED course includes a thorough examination and history. Medications: -- Imaging: CT head Labs: -- ED course: CT results revealed. No signs of hemorrhage or tumor or any acute pathological findings. Will order medications for pain, acetaminophen and tramadol and Reglan and diphenhydramine. IMPRESSION: 1. Stable mild changes of chronic atrophy and small vessel disease of white matter. 2. Otherwise, no evident acute process in the head. RPTAT: UU R Guy Physician Low suspicion for life-threatening medical emergency. Low suspicion for neurological emergency that requires hospitalization or immediate surgical i ntervention. patient presenting with constellation of symptoms likely representing headache secondary to hypertension as characterized by history, physical exam findings, radiologic findings. Patient reassessment : Patient reporting significant decrease in pain. Patient reports he has not taken blood pressure medication tonight. No signs of hypertension emergency/urgency. Patient has blood pressure medications with him during ER visit, states he will take facility. No respiratory distress, otherwise relatively well appearing and nontoxic. Patient educated on diagnoses, prescriptions, follow-up care, return precautions. Strict return precautions given for worsening condition; questions answered discharge. Disposition for discharge with followup in 2 days with PCP/clinic. Blood Pressure Assessment: Patient's blood pressure was elevated (>120/80) but appears stable without evidence of hypertension emergency or urgency. The patient was counseled about the risks of hypertension and urged to pursue outpa tient monitoring and therapy within a week with their primary care physician. Departure Diagnosis: Primary Impression: Headache Headache type: unspecified Headache chronicity pattern: unspecified pattern Intractability: not intractable Qualified Codes: R51 - Headache Additional Impression: Hypertension Hypertension type: unspecified Qualified Codes: I10 - Essential (primary) hypertension Condition: Stable Patient Instructions: Self-Care for Headaches Referrals: DARYL MIRELES MD (PCP) [facility] YOU HAVE RECEIVED A MEDICAL SCREENING EXAM AND THE RESULTS INDICATE THAT YOU DO NOT HAVE A CONDITION THAT REQUIRES URGENT TREATMENT IN THE EMERGENCY DEPARTMENT. FURTHER EVALUATION AND TREATMENT OF YOUR CONDITION CAN WAIT UNTIL YOU ARE SEEN IN YOUR DOCTORS OFFICE WITHIN THE NEXT 1-2 DAYS. IT IS YOUR RESPONSIBILITY TO MAKE AN APPOINTMENT FOR FOLOW-UP CARE. IF YOU HAVE A PRIMARY DOCTOR --you should call your primary doctor and schedule an appointment IF YOU DO NOT HAVE A PRIMARY DOCTOR YOU CAN CALL OUR PHYSICIAN REFERRAL HOTLINE AT IF YOU CAN NOT AFFORD TO SEE A PHYSICIAN YOU CAN CHOSE FROM THE FOLLOWING [facility] CL[facility] [address] [facility]. [facility] [address] [facility] [place] [address] [facility] [facility] [address] [facility] [facility] [address] [facility]. [facility] [address] [facility]. [facility] YOU HAVE RECEIVED A MEDICAL SCREENING EXAM AND THE RESULTS INDICATE THAT YOU DO NOT HAVE A CONDITION THAT REQUIRES URGENT TREATMENT IN THE EMERGENCY DEPARTMENT. FURTHER EVALUATION AND TREATMENT OF YOUR CONDITION CAN WAIT UNTIL YOU ARE SEEN IN YOUR DOCTORS OFFICE WITHIN THE NEXT 1-2 DAYS. IT IS YOUR RESPONSIBILITY TO MAKE AN APPOINTMENT FOR FOLOW-UP CARE. IF YOU HAVE A PRIMARY DOCTOR --you should call your primary doctor and schedule and appointment IF YOU DO NOT HAVE A PRIMARY DOCTOR YOU CAN CALL OUR PHYSICIAN REFERRAL HOTLINE AT . IF YOU CAN NOT AFFORD TO SEE A PHYSICIAN YOU CAN CHOSE FROM THE FOLLOWING [facility] INSTITUTIONS: [facility] [address] [place] [address] [facility] [address] [place] [address] [facility] + [facility] [address] [place] [address] Additional Instructions: Thank you very much for allowing us to participate in your care. Your health and safety is our top priority at [facility]. It is important to read all discharge instructions and education provided in your discharge packet. Although your CAT scan of the head does not show any brain bleed or tumor. It is important to follow-up with your primary care for further evaluation to determine if further testing is needed. As well as reevaluation of your symptoms. Call your primary care doctor TOMORROW for an appointment during the next 2-4 days and bring all the information and medications prescribed. Have prescriptions filled and follow precisely the directions on the label. -Acetaminophen is for mild to moderate pain. -Tramadol is for moderate to severe pain. Do not take this medication if operate heavy machinery. -Zofran is a medication for nausea/vomitting; take this medication as needed for nausea/vomiting If the symptoms get worse and your provider is unavailable, return to the Emergency Department immediately. MARGARET HOLLY NP Feb 20, 2019 06:31
== END 2019-02-20 00:15 | disposition home or self-care (01) ==
LOC: FTE 19:05
DX: I12.0 Hypertensive chronic kidney disease with stage 5 chronic kidney disease or end stage renal disease (principal); N18.6 End stage renal disease; Z94.0 Kidney transplant status; Z99.2 Dependence on renal dialysis
CPT/HCPCS: 70450; 82962; 96372; J2765; Z7502; Z7610

== ENCOUNTER 2019-04-28 08:32 | Emergency (ER) | payer MEDICAID ==
[~2019-04-28] VITALS: Ht 162.6 cm; Wt 62.7 kg
[~2019-04-28 08:32] MED LIST changes: +ACET325T33 PO; +CINA30TA4 PO; -CNC30T PO; +ONDA4TAB14 PO; +TRAM50TA2 PO
[2019-04-28 08:41] VITALS: Ht 162.6 cm; Wt 62.7 kg
[2019-04-28] MEDS ORDERED: ALBUTEROL 0.083% (NEB) 2.5 MG/3 ML AMP HHN STA (10:44)
[2019-04-28] MEDS ORDERED: CALCIUM GLUCONATE 10% 1 GM in DEXTROSE 5% 100 ML IVPB ONE (11:00)
[2019-04-28 13:12] VITALS: BP 148/88; PULSE 71; RESP 18
--- NOTE | 2019-04-29 09:33 | ERD ---
ER Documentation Chief Complaint Chief Complaint C/O RIGHT NECK PAIN WITH PAIN GOES TO ARM AND LUMP TO RIGHTBREAST HPI This is a 43-year-old male patient presents emergency room with complaint of right posterior neck pain that originates in right breast at small lump that has been growing in size over the last 2 months. Patient also states he is having some hemoptysis, chills, acid reflux daily. History significant for kidney f ailure, patient is a dialysis patient for 16 years, 3 times a week on Thursday. Patient is due for dialysis today. Patient is otherwise well-appearing, alert, cooperative, NAD. ROS All systems reviewed and are negative except as per history of present illness. Medications Home Meds Active Scripts Ondansetron (Ondansetron Odt) 4 Mg Tab.rapdis, 4 MG PO Q8 PRN for NAUSEA AND/OR VOMITING, #10 TAB Prov:MARGARET HOLLY V [employer] 02/19/19 Tramadol HCl (Tramadol HCl) 50 Mg Tablet, 50 MG PO Q12 PRN for PAIN, #4 TAB Prov:MARGARET HOLLY V [employer] 02/19/19 Acetaminophen* (Tylenol*) 325 Mg Tablet, 2 TAB PO Q6 PRN for PAIN LEVEL 1-5, #20 TAB Prov:MARGARET HOLLY V [employer] 02/19/19 Reported Medications Cinacalcet* (Sensipar*) 30 Mg Tab, 30 MG PO DAILY, TAB 01/19/17 Esomeprazole Mag Trihydrate (Nexium) 40 Mg Capsule.dr, 40 MG PO DAILY, #30 CAP 01/19/17 Lorazepam* (Lorazepam*) 1 Mg Tablet, 1 MG PO BID PRN for ANXIETY, TAB 08/08/15 Zolpidem Tartrate* (Zolpidem Tartrate*) 5 Mg Tablet, 5 MG PO HS PRN, TAB 08/08/15 Nifedipine* (Procardia XL*) 90 Mg/Bottle Tab.osm.24, 90 MG PO Q12, TAB.SA 08/08/15 Losartan Potassium* (Losartan Potassium*) 100 Mg Tablet, 100 MG PO DAILY, TAB 05/01/15 Labetalol Hcl* (Labetalol Hcl*) 200 Mg Tablet, 200 MG PO Q8, TAB 05/01/15 Folic Acid* (Folic Acid*) 1 Mg Tablet, 1 MG PO DAILY, TAB 05/01/15 Sevelamer Hcl* (Renagel*) 800 Mg Tablet, 800 MG PO WITH MEALS, TAB 06/23/14 Allergies Allergies: Coded Allergies: metronidazole (Unverified Adverse Reaction, Severe, DELIRIUM, 01/19/17) PMhx/Soc History of Surgery: Yes (25 YEARS AGO , KIDNEY TRANSPLANT,right fistula) Anesthesia Reaction: No Hx Neurological Disorder: No Hx Respiratory Disorders: No Hx Cardiac Disorders: Yes (HTN, DYSLIPIDEMIA) Hx Psychiatric Problems: No Hx Miscellaneous Medical Probl: Yes (ESRD, on dialysis) Hx Alcohol Use: No Hx Substance Use: No Hx Tobacco Use: No FmHx Family History: No diabetes, No coronary disease, No other Physical Exam Vitals Vital Signs Date Temp Pulse Resp B/P (MAP) Pulse Ox O2 O2 Flow FiO2 Time Delivery Rate 04/28/19 98.2 71 18 148/88 98 Room Air 13:12 (108) 04/28/19 85 18 96 21 11:31 04/28/19 97.5 80 18 136/81 97 08:41 (99) Physical Exam Const: No acute distress Head: Atraumatic Eyes: Normal Conjunctiva ENT: Normal External Ears, Nose and Mouth. Neck: Full range of motion. No meningismus. Resp: Clear to auscultation bilaterally Cardio: Regular rate and rhythm, no murmurs Abd: Soft, non tender, non distended. Normal bowel sounds Skin: No petechiae or rashes Back: No midline or flank tenderness Ext: No cyanosis, or edema Neur: Awake and alert Psych: Normal Mood and Affect Result Diagram: 04/28/1917 04/28/19 0917 Results 24 hrs Laboratory Tests Test 04/28/19 09:17 White Blood Count 6.8 10^3/ul Red Blood Count 2.70 10^6/ul Hemoglobin 7.8 g/dl Hematocrit 25.2 % Mean Corpuscular Volume 93.3 fl Mean Corpuscular Hemoglobin 28.9 pg Mean Corpuscular Hemoglobin Concent 31.0 g/dl Red Cell Distribution Width 16.8 % Platelet Count 259 10^3/UL Mean Platelet Volume 11.3 fl Immature Granulocytes % 0.300 % Neutrophils % 74.9 % Lymphocytes % 12.4 % Monocytes % 9.5 % Eosinophils % 2.2 % Basophils % 0.7 % Nucleated Red Blood Cells % 0.0 /100WBC Immature Granulocytes # 0.020 10^3/ul Neutrophils # 5.1 10^3/ul Lymphocytes # 0.8 10^3/ul Monocytes # 0.6 10^3/ul Eosinophils # 0.2 10^3/ul Basophils # 0.1 10^3/ul Nucleated Red Blood Cells # 0.0 10^3/ul Sodium Level 133 mmol/L Potassium Level 7.3 mmol/L Chloride Level 93 mmol/L Carbon Dioxide Level 23 mmol/L Anion Gap 17 Blood Urea Nitrogen 89 mg/dl Creatinine 14.28 mg/dl Est Glomerular Filtrat Rate mL/min 4 mL/min Glucose Level 96 mg/dl Calcium Level 10.8 mg/dl Total Bilirubin 0.1 mg/dl Direct Bilirubin 0.00 mg/dl Indirect Bilirubin 0.1 mg/dl Aspartate Amino Transf (AST/SGOT) 16 IU/L Alanine Aminotransferase (ALT/SGPT) 19 IU/L Alkaline Phosphatase 82 IU/L Total Protein 7.3 g/dl Albumin 4.2 g/dl Globulin 3.10 g/dl Albumin/Globulin Ratio 1.35 Current Medications Medications Dose Sig/Kayden Start Time Status Last (Trade) Ordered Route PRN Stop Time Admin Dose Reason Admin Calcium 110 ml @ ONCE ONCE 04/28/19 DC 04/28/19 Gluconate 1 110 mls/hr IVPB 11:00 11:00 gm/Dextrose 04/28/19 11:59 Albuterol 10 mg ONCE STAT 04/28/19 DC 04/28/19 (Proventil HHN 10:44 11:25 0.083% (Neb)) 04/28/19 10:50 Procedures/MDM PROCEDURES/MDM EKG: Read by Dr. Viera, attending physician. EKG shows sinus rhythm with possible PAC at 68 bpm No arrhythmias, acute ST elevations or T wave abnormalities were noted. DIAGNOSTIC IMAGING: Read by radiologist. Right breast ultrasound IMPRESSION: 1. Hypoechoic solid masses measuring 1.4 cm and 0.6 cm in maximal dimension in the right breast periareolar region at the site of the palpable lesion. 2. Any further management regarding any palpable lesion should be based upon clinical grounds. Chest x-ray IMPRESSION: No evidence of acute cardiopulmonary disease. LAB INTERPRETATION: Leukocytosis, + anemia, + hyperkalemia, elevated BUN and creatinine. Patient states he receives regular injections of Procrit for his anemia. MDM: This is a 43-year-old male patient who presents emergency room with multiple complaints including pain to lump present in right breast, right posterior neck pain, and hemoptysis x10 days. Patient has chronic acute kidney failure and has been on dialysis for 16 years. Given patient's chronic medical condition and potential for serious illness, lab tests and imaging were performed today. Patient with hyperkalemia and elevated BUN and creatinine. Patient states 2 days ago he did not finish his dialysis treatment as he was having too much pain in his right breast area to complete dialysis. [facility] dialysis center called at 10:30 AM to see if patient could be emergently dialyzed, spoke with Romaine MONTALVO. No current room for patient at dialysis center as all chairs were fall with yolie hernandezkaylynn's currently getting dialysis. Case was presented to Dr. Viera with concern of incidental finding of hyperkalemia. Orders received to administer albuterol 10 mg via nebulizer, calcium gluconate 1 g via IV, and EKG. Patient to be monitored in the ER until he can be seen at [facility] for his standing appointment at 1:45 PM. Patient was moved to primary care area for monitoring, administered albuterol and calcium gluconate without incident. Patient alert, appropriate, no chest pain, no shortness of breath at time of discharge. Patient states he is going directly to [facility] for dialysis upon discharge. [facility] telephone to notify patient was on his way. Shortly after patient discharge, [facility] called this ED to notify patient had called and stated he was not going to go to dialysis because he was tired. This [employer] telephoned patient and discussed risk of failing to have dialysis today including , patient agreed to present to [facility] for dialysis. Call received from dialysis stating that patient had arrived and was receiving his dialysis treatment. Patient's evaluation and diagnostic work-up does not indicate pneumonia, tuberculosis, bacterial bronchitis, neoplasm. Lump on right chest low suspicion for cellulitis, infection, abscess. Patient instructed to follow-up with his primary care doctor in that definitive diagnosis may require biopsy. Patient provided with lab and ultrasound and x-ray results to take to his primary care provider. Patient instructed on maintaining his dialysis schedule, returning to emergency room for any worsening of symptoms such as worsening of hemoptysis, development of fever, chest pain, shortness of breath. DISPOSITION and PLAN: The patient has been discharge home to follow-up with community physician. Departure Diagnosis: Primary Impression: Cyst Additional Impression: Hyperkalemia Condition: Stable Patient Instructions: Sebaceous Cyst Additional Instructions: Thank you very much for allowing us to participate in your care. Your health and safety is our top priority at [facility]. Call your primary care doctor TOMORROW for an appointment during the next 2-4 days and bring all the information and medications prescribed. Have prescriptions filled and follow precisely the directions on the label. If the symptoms get worse and your provider is unavailable, return to the Emergency Department immediately. APPLY COOL COMPRESS TO RIGHT BREAST 2-3 TIMES A DAY FOR COMFORT. USE TYLENOL NEEDED FOR PAIN. FOLLOW-UP WITH YOUR PRIMARY CARE DOCTOR FOR FURTHER EVALUATION. RETURN TO THE EMERGENCY ROOM WITH ANY FEVERS, REDNESS, SWELLING, ornipple discharge. MONTEZ GRIFFIN NP Apr 29, 2019 09:33
== END 2019-04-28 14:03 | disposition home or self-care (01) ==
LOC: FTE 08:32 → E/R 14:03
DX: N60.01 Solitary cyst of right breast (principal); I12.0 Hypertensive chronic kidney disease with stage 5 chronic kidney disease or end stage renal disease; N18.6 End stage renal disease; E87.5 Hyperkalemia; R04.2 Hemoptysis; Z94.0 Kidney transplant status; Z99.2 Dependence on renal dialysis
CPT/HCPCS: 71046; 76642; 80053; 85025; 93005; 94664; 96374; J0610; Z7502; Z7610

== ENCOUNTER 2019-06-17 13:54 | Inpatient (IN) | payer MEDICAID ==
[~2019-06-17] VITALS: Ht 160 cm; Wt 60.0 kg
[~2019-06-17 13:54] MED LIST changes: +CARV6.2579 PO; +CINA60TA PO; +HYDR-3671 PO; +NIFE60TA18 PO
[2019-06-17 17:58] VITALS: Ht 160 cm; Wt 60.0 kg
[2019-06-23 08:00] VITALS: RESP 20
[2019-06-23 10:27] VITALS: BP 165/90; PULSE 100
== END 2019-06-23 11:20 | disposition home or self-care (01) | DRG 291 ==
LOC: E/R 13:54 → TEL 15:13 → MERGE 15:13
PROVIDERS: ADMIT Internal Medicine; ATTEND Internal Medicine
PROC: 5A1D70Z Performance of Urinary Filtration, Intermittent, Less than 6 Hours Per Day (ICD-10-PCS; principal; 2019-06-18)
PROC: 30233N1 Transfusion of Nonautologous Red Blood Cells into Peripheral Vein, Percutaneous Approach (ICD-10-PCS; 2019-06-18)
DX: I13.2 Hypertensive heart and chronic kidney disease with heart failure and with stage 5 chronic kidney disease, or end stage renal disease (principal); I50.23 Acute on chronic systolic (congestive) heart failure; N18.6 End stage renal disease; N25.81 Secondary hyperparathyroidism of renal origin; T86.12 Kidney transplant failure; R07.89 Other chest pain; E87.5 Hyperkalemia; D63.8 Anemia in other chronic diseases classified elsewhere; Z99.2 Dependence on renal dialysis; Y83.0 Surgical operation with transplant of whole organ as the cause of abnormal reaction of the patient, or of later complication, without mention of misadventure at the time of the procedure
CPT/HCPCS: 36415; 36430; 71045; 78452; 80048; 80053; 82550; 82553; 82652; 83690; 83735; 83880; 84100; 84484; 84560; 85025; 86704; 86709; 86803; 86850; 86900; 86901; 86920; 87081; 87340; 90935; 93005; 93017; 93306; A9500; A9505; J0360; J2060; J2785; P9016; Q5105